=== PATIENT | female | born 1975 | race American Indian/Alaskan Native ===

== ENCOUNTER 2016-09-06 19:54 | Inpatient (IN) | payer MEDICAID ==
[2016-09-06 20:01] VITALS: BMI 24.7
--- NOTE | 2016-09-06 20:14 | ED PDOC ---
Arrival/HPI - General Time Seen by Provider: 09/06/16 19:56 Historian: Patient - History of Present Illness Narrative History of Present Illness (Text): 09/06/16 20:14 40 year old female whose past medical history includes hypertension presents to the Emergency department complaining of generalized weakness. Patient reports she was upstairs at work 15 minutes [employer] when she began experience dizziness and felt as though she was about to have a panic attack. Per patient, she went to the nurse's station and then began to lose consciousness. She states she woke up in the Emergency department and noted generalized weakness, nausea, vomiting x2 (nonbloody, nonbilious), and some chest discomfort from the vomiting. She states she no longer feels dizzy. She denies abdominal pain, headache, visual complaints, trouble speaking, or numbness. She denies any history of stroke. Patient is alert and oriented x3. She states she took her hypertension medication today right before her symptoms began. Patient reports she has experienced similar episodes in the past. PMD: Dr. Bunch Time/Duration: Prior to Arrival Symptom Onset: Gradual Symptom Course: Unchanged Activities at Onset: Rest Past Medical History - Provider Review Nursing Documentation Reviewed: Yes - Infectious Disease Hx of Infectious Diseases: None - Cardiac Hx Cardiac Disorders: Yes Hx Hypertension: Yes - Pulmonary Hx Respiratory Disorders: No - Neurological Hx Neurological Disorder: No - HEENT Hx HEENT Disorder: Yes (GLASSES) - Renal Hx Renal Disorder: No - Endocrine/Metabolic Other/Comment: enlarge thyroid. - Hematological/Oncological Hx Blood Disorders: No - Integumentary Hx Dermatological Disorder: No - Musculoskeletal/Rheumatological Hx Musculoskeletal Disorders: No - Gastrointestinal Hx Gastrointestinal Disorders: No - Genitourinary/Gynecological Hx Genitourinary Disorders: No - Psychiatric Hx Psychophysiologic Disorder: No Hx Substance Use: No - Surgical History Hx Section: Yes Hx Dilation and Curettage: Yes Other/Comment: RIGHT ARM BULLET EXTRACTION - Anesthesia Hx Anesthesia Reactions: Yes (ITCHY ? FROM WHAT) Hx Malignant Hyperthermia: No - Suicidal Assessment Feels Threatened In Home Enviroment: No Family/Social History - Physician Review Nursing Documentation Reviewed: Yes Family/Social History: Unknown Family HX Smoking Status: Never Smoked Hx Alcohol Use: No Hx Substance Use: No Allergies/Home Meds Allergies/Adverse Reactions: Allergies ibuprofen [From Advil] Allergy (Verified 11/14/15 10:35) ANAPHYLAXIS PT.TAKES GENERIC IBUPROFEN WITHOUT DIFFICULTY ALLERGIC REACTION IS TO ADVIL Home Medications: Home Meds Medication Instructions Recorded Confirmed Cyclobenzaprine [Flexeril] 1 tab PO PRN PRN 11/14/15 11/14/15 Lactulose 1 dose PO DAILY 11/14/15 11/14/15 Lisinopril 1 tab PO DAILY 11/14/15 11/14/15 Naproxen 1 tab PO DAILY PRN 11/14/15 11/14/15 Norethindrone [Patti] 1 tab PO DAILY 11/14/15 11/14/15 Sennosides [Senna Laxative] 1 tab PO BID 11/14/15 11/14/15 Review of Systems - Physician Review All systems were reviewed & negative as marked: Yes - Review of Systems Constitutional: Other (+generalized weakness) Eyes: absent: Vision Changes Cardiovascular: Other (+chest discomfort from vomiting) Gastrointestinal: Nausea, Vomiting. absent: Abdominal Pain Neurological: absent: Headache, Dizziness, Other (no difficulty speaking; no numbness) Physical Exam Vital Signs Reviewed: Yes Vital Signs Temp Pulse Resp BP Pulse Ox 09/06/16 21:35 97.8 F 75 19 100 09/06/16 20:49 97.4 F L 63 22 09/06/16 20:06 79 20 141/87 Temperature: Afebrile Blood Pressure: Normal Pulse: Regular Respiratory Rate: Normal Appearance: Positive for: Non-Toxic, Comfortable, Other (Appears weak) Pain Distress: None Mental Status: Positive for: Alert and Oriented X 3 - Systems Exam Head: Present: Atraumatic, Normocephalic Pupils: Present: PERRL Extroacular Muscles: Present: EOMI Conjunctiva: Present: Normal Mouth: Present: Moist Mucous Membranes Neck: Present: Normal Range of Motion Respiratory/Chest: Present: Clear to Auscultation, Good Air Exchange. No: Respiratory Distress, Accessory Muscle Use, Wheezes, Rales, Rhonchi Cardiovascular: Present: Regular Rate and Rhythm, Normal S1, S2. No: Murmurs, Rub, Gallop Abdomen: Present: Normal Bowel Sounds. No: Tenderness, Distention, Peritoneal Signs, Rebound, Guarding Back: Present: Normal Inspection Upper Extremity: Present: Normal Inspection, Normal ROM. No: Cyanosis, Edema Lower Extremity: Present: Normal Inspection, Normal ROM. No: Edema Neurological: Present: GCS=15, CN II-XII Intact, Speech Normal, Normal Sensory Function Skin: Present: Warm, Dry, Normal Color. No: Rashes Psychiatric: Present: Alert, Oriented x 3, Normal Insight, Normal Concentration Medical Decision Making ED Course and Treatment: 09/06/16 20:26 Impression: 40 year old female complaining of generalized weakness, nausea, and vomiting. Physical exam unremarkable. Differential Diagnosis included but are not limited to: syncope, second to cardiac vs vasovagal vs medication reaction, less likely stroke Plan: --CT Head --EKG --Chest X-ray --Urinalysis --Labs --Zofran -- Reassess and disposition Prior Visits: Notes and results from previous visits were reviewed. Progress Notes: 09/06/16 21:[address] is negative. She currently is feeling much better but is still having some dizziness and a posterior headache. She added that she has been under some stress lately and maybe that's what happened but she's not sure. Since she is still having dizziness after NS IV and Zofran, I will give her Reglan IV as an antivert. She's only allergic to ADVIL she states and not ibuprofen or aspirin. Aspirin PO was ordered for headache and for possible CVA. She will be placed on observation remote telemetry for syncope and less likely cva. 09/06/16 21:57 Case was discussed with Dr. Elder who will place on the hospitalist service in remote telemetry. Dr. Espitia is patient's PMD who admits to the hospitalist. - Lab Interpretations Lab Results: 09/06/16 20:10 09/06/16 20:10 Lab Results 09/06/16 21:06: Blood Type Pending, Antibody Screen Pending, BBK History Checked Patient has bt 09/06/16 20:20: pO2 105 H, VBG pH 7.48 H, VBG pCO2 29.0 L, VBG HCO3 21.6, VBG Total CO2 22.5, VBG O2 Sat (Calc) 99.3 H, VBG Base Excess -1.0 L, VBG Potassium 4.1, Sodium 137.0, Chloride 110.0 H, Glucose 105, Lactate 2.4 H, FiO2 21.0, Venous Blood Potassium 4.1 09/06/16 20:10: WBC 6.2, RBC 4.42, Hgb 11.9 L, Hct 35.8 L, MCV 81.0, MCH 26.9, MCHC 33.2, RDW 13.3, Plt Count 263, MPV 9.6, Gran % 50.1, Lymph % (Auto) 41.0 H , [place] % (Auto) 8.1 H, Eos % (Auto) 0.5 L, Baso % (Auto) 0.3, Gran # 3.08, Lymph # 2.5, [place] # 0.5, Eos # 0.0, Baso # 0.02, PT 10.9, INR 1.01, APTT 23.1 L , Sodium 139, Chloride 102, Potassium 3.4 L, Carbon Dioxide 24, Anion Gap 16, BUN 15, Creatinine 0.6, Est GFR ( Amer) > 60, Est GFR (Non-Af Amer) > 60 , Random Glucose 108, Calcium 10.0, Total Bilirubin 0.5, AST 26, ALT 19, Alkaline Phosphatase 62, Troponin I < 0.01, Total Protein 8.6 H, Albumin 4.6, Globulin 4.0, Albumin/Globulin Ratio 1.2, Triglycerides 51, Cholesterol 172, LDL Cholesterol Direct 101, HDL Cholesterol 52, Lipase 69, Beta HCG, Quant < 2.39 I have reviewed the lab results: Yes - RAD Interpretation Narrative RAD Interpretations (Text): 09/06/16 21:49 EXAM: CT Head Without Intravenous Contrast Dictated and Authenticated by: Asuncion Shea MD FINDINGS: Brain: No hemorrhage. No significant white matter disease. No edema. Ventricles: No hydrocephalus. Bones/joints: Skull is intact. Soft tissues: Unremarkable as visualized. Sinuses: No acute sinusitis. Mastoid air cells: No mastoid effusion. IMPRESSION: No CT evidence of acute intracranial abnormality. Thank you for allowing us to participate in the care of your patient. Dictated and Authenticated by: Asuncion Shea MD Radiology Orders: 09/06/16 20:01 CHEST PORTABLE [RAD] Stat 09/06/16 20:03 HEAD W/O CONTRAST [CT] Stat Employment Recruiter: Radiologist - EKG Interpretation EKG Interpretation (Text): 09/06/16 20:28 EKG: Ordered, reviewed, and independently interpreted the EKG. Rate : 80 BPM Rhythm : NSR Interpretation : No ST-segment elevations or depressions, no T-wave inversions, normal intervals. Interpreted by ED Physician: Yes Type: 12 lead EKG - Medication Orders Current Medication Orders: Aspirin (Aspirin) 325 mg PO STAT STA Stop: 09/06/16 21:51 Sodium Chloride (Sodium Chloride 0.9%) 1,000 mls @ 999 mls/hr IV .Q1H1M STA Stop: 09/06/16 22:43 Last Admin: 09/06/16 21:48 Dose: 999 MLS/HR eMAR Start Stop Document 09/06/16 21:48 GMI (Rec: 09/06/16 21:49 GMI [facility] [id number]) Intravenous Solution Start Date 09/06/16 Start Time 21:49 Discontinued Medications Metoclopramide HCl (Reglan) 10 mg IVP STAT STA Stop: 09/06/16 21:44 Ondansetron HCl (Zofran Inj) Confirm Administered Dose 4 mg .ROUTE .STK-MED ONE Stop: 09/06/16 20:01 Last Admin: 09/06/16 20:40 Dose: Ondansetron HCl (Zofran Inj) 4 mg IVP STAT STA Stop: 09/06/16 20:05 Last Admin: 09/06/16 20:10 Dose: 4 MG IVP Administration Document 09/06/16 20:10 GMD (Rec: 09/06/16 20:10 GMD [id number]) Charges for Administration # of IVP Administrations 1 NIHSS Scale ([place]) Time Performed: 19:56 - How Severe is the Stoke Baseline Level of Consciousness: 0=Alert LOC to Questions: 0=Both comments correct LOC to commands: 0=Obeys both correctly Best Gaze: 0=Normal Visual: 0=No visual loss Facial: 0=Normal Motor Arm - Left: 0=No drift Motor Arm - Right: 0=No drift Motor Leg - Left: 0=No drift Motor Leg - Right: 0=No drift Limb Ataxia: 0=Absent Sensory: 0=Normal Best Language: 0=No aphasia Dysarthia: 0=Normal articulation Extinction & Inattention (Neglect): 0=Normal, no object Score: 0 Risk Level: No Stroke Risk rTPA Inclusion/Exclusion - Refusal of Treatment Patient Refused Treatment: No - Inclusion Criteria for Altepase Patient is 18 years or Older: Yes The Clinical Diagnosis of Ischemic Stroke That is Causing a Potentially Disabling Neurological Deficit: No Time of Onset is Well Established to be Less Than 270 Minute Before Treatment Would Begin: Yes Risk/Benefit Discussed With Patient/Family Member Present: No - Warning to TPA With Conditions Condition: Stroke Serevity Too Mild - Scribe Statement The provider has reviewed the documentation as recorded by the Heidi Livingston Provider Scribe Attestation: All medical record entries made by the Heidi were at my direction and personally dictated by me. I have reviewed the chart and agree that the record accurately reflects my personal performance of the history, physical exam, medical decision making, and the department course for this patient. I have also personally directed, reviewed, and agree with the discharge instructions and disposition. Disposition/Present on Arrival - Present on Arrival Any Indicators Present on Arrival: No History of DVT/PE: No History of Uncontrolled Diabetes: No Urinary Catheter: No History Surgical Site Infection Following: None - Disposition Have Diagnosis and Disposition been Completed?: Yes Diagnosis: Syncope, Dizziness Disposition Time: 21:57 Patient Plan: Observation Condition: FAIR Discharge Instructions (ExitCare): Syncope (ED)
[2016-09-06 20:16] LABS: ADD MANUAL DIFF? NO
[2016-09-06 20:17] LABS: BASO # 0.02 K/mm3 (0.0-2.0); BASO % 0.3 % (0.0-3.0); EOS % 0.5 % (1.5-5.0); GRAN # 3.08 (1.4-6.5); GRAN % 50.1 % (50.0-68.0); HEMATOCRIT 35.8 % (36.0-48.0); LYMPH # 2.5 (1.2-3.4); MEAN CORPUSCULAR HEMOGLOBIN 26.9 pg (25.0-35.0); MEAN CORPUSCULAR HGB CONC 33.2 g/dl (31.0-37.0); MEAN PLATELET VOLUME 9.6 fl (7.0-11.0); MONO # 0.5 (0.1-0.6); MONO % 8.1 % (1.0-6.0); PLATELET COUNT 263 10^3/uL (120.0-450.0); RED CELL DISTRIBUTION WIDTH 13.3 % (11.5-14.5); WHITE BLOOD COUNT 6.2 10^3/ul (4.5-11.0)
[2016-09-06 20:27] LABS: ALB/GLOB RATIO 1.2 (1.1-1.8); ALKALINE PHOSPHATASE 62 U/L (38-133); ALT/SGPT 19 U/L (7-56); AST/SGOT 26 U/L (15-39); BILIRUBIN,TOTAL 0.5 mg/dL (0.2-1.3); BLOOD UREA NITROGEN 15 mg/dL (7-21); CARBON DIOXIDE 24 mmol/L (21-33); CHLORIDE 102 mmol/L (98-107); CHOLESTEROL 172 mg/dL (130-200); GFR AFRICAN-AMERICAN > 60; GLUCOSE,RANDOM 108 mg/dL (70-110); LIPASE 69 U/L (23-300); POTASSIUM 3.4 mmol/L (3.6-5.0); SODIUM 139 mmol/L (132-148); TOTAL PROTEIN 8.6 g/dL (5.8-8.3)
[2016-09-06 20:30] LABS: INR 1.01 (0.93-1.08); PARTIAL THROMBOPLASTIN TIME 23.1 Seconds (23.7-30.8)
[2016-09-06 20:31] LABS: VENOUS BLOOD PH 7.48 (7.32-7.43)
[2016-09-06 20:39] LABS: TROPONIN I < 0.01 ng/mL
--- NOTE | 2016-09-06 20:40 | CP.PCM.PCO ---
<BlessingHarmeet - Last Filed: 09/06/16 20:06> Physician Communication Note - Physician Communication Note Physician Communication Note: Please see attached section for rapid response note Summary - Summary of Event Summary of Event: Rapid Response Summary Note Harmeet Funk, PGY-1 [facility] House Physican responding: Dr. 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, caught by surrounding staff and brought down to ground to prevent fall and head trauma Physical Exam: Gen: on ground, initially non-responsive but became able to follow some commands , diaphroetic, non-verbal, ambu-bag with mask on patient to provide O2 HEENT: Initially: Eyes closed, pupils equal and round when raising eyelids, Pupils not pinpoint or dilated; Later became able to open eyes on command, track staff when commanded appropriately No teeth clenching, no sign of tongue bleeding No visible trauma Pulm: CTAB, no wheezes/rales/ronchi, not tachypnic but mildly shallow breathing Cardio: No JVD, RRR, +S1/2, -S3/4, not tachycardic or bradycardic, no murmurs/ rubs/gallops, weak but palpable radial pulses bilaterally Abd: Soft, Normal bowel sounds, no palpable masses, no organomegaly, no distention, not firm or rigid Extremities: initially held flacidly, no spontaneous movement, no gross asymmetries or edema noted; later able to attempt to move all extremities when commanded Neuro: Non-responsive initially, later had some spontaneous movement, eye opening on command, able to attempt limb movement on command, following some commands but sometimes need repeat prompting and has delay between command and attempt to follow command Psych: Non-verbal, following commands, lethargic/somnolent, occasionally requires repeat prompting Per Nursing on the scene, patient came over to the nursing station complaining of feeling lightheaded and dizzy, not feeling well, asked for one of the nurses to check her blood pressure. Patient was placed sitting in chair, but while one nurse went to get a BP cuff, patient began slouching forward in the chair and appeared to be about to fall. Other nurses on scene caught her before she could fall and lowered her to the ground, at which point she was found to be unresponsive and the rapid response was called. No head trauma. Heart monitoring at bedside revealed a rate of 70. O2 saturation on ambu-bag and later NC with 2L NC was 100%. Patient regained enough function to attempt to roll on side and cough up/retch sputum and some vomitus (non-bilious non- bloody). Head was held up and rotated to prevent aspiration of secretions. Patient continued to follow commands and appeared neurologically intact, so patient was transferred to [facility] and transported to the Emergency Department. In the ED, patient was able to speak some word, able to correctly identify herself and that she was located in the ED. Reports a history of HTN, just took her BP meds (medications unspecified) prior to the incident. She will be taken for CT of her head, and will be admitted to the Emergency Department for further workup and management. Patient seen, examined, and course of care agreed upon with attending, Dr. Elder. <Rory Elder P - Last Filed: 09/13/16 20:11> Attending/Attestation - Attestation I have personally seen and examined this patient.: Yes I have fully participated in the care of the patient.: Yes I have reviewed all pertinent clinical information: Yes
--- NOTE | 2016-09-06 21:40 | CT ---
EXAM: CT Head Without Intravenous Contrast. CLINICAL HISTORY: 40 years old, female; Signs and symptoms; Syncope and collapse TECHNIQUE: Axial computed tomography images of the head/brain without intravenous contrast. This CT exam was performed using one or more of the following dose reduction techniques: automated exposure control, adjustment of the mA and/or kV according to patient size, and/or use of iterative reconstruction technique. COMPARISON: CT - HEAD W/O CONTRAST 02/10/2016 7:54:13 PM FINDINGS: Brain: No hemorrhage. No significant white matter disease. No edema. Ventricles: No hydrocephalus. Bones/joints: Skull is intact. Soft tissues: Unremarkable as visualized. Sinuses: No acute sinusitis. Mastoid air cells: No mastoid effusion. IMPRESSION: No CT evidence of acute intracranial abnormality.
[2016-09-06] MEDS ORDERED: Sodium Chloride 0.9% 1,000 ML IV STA (21:43)
--- NOTE | 2016-09-06 23:59 | CP.PCM.HP ---
<Harmeet Funk - Last Filed: 09/07/16 00:57> History of Present Illness - History of Present Illness History of Present Illness: CC: Syncopal Episode with residual weakness/nausea/dizziness HPI: This is a 40 yo AA F employee of [employer] [place] with PMH of HTN and Panic attacks who experienced a syncopal episode while working, for which a rapid response was called (please see rapid response note for further details), and she was then brought to the ED. In the ED, patient regained full consciousness and reported persistence of weakness, nausea, and dizziness with sensation of room spinning. She experienced an episode of non-bilious non-bloody emesis in the ED. Her last memory was of sitting down in a chair prior to passing out on the wards, and other than intermittent memory of multiple faces entering and exiting her field of vision, has no memories prior to coming to in the ED. She reports that the dizziness/lightheadedness, shortness of breath, and general sensation of flushing she experienced prior to her syncopal episode was distinctly different from the episodes of lightheadedness and tachypnea she experiences with her prior panic attacks. She initially attributed these symptoms to her blood pressure, and took her Lisinopril (20mg) after experiencing them, but the symptoms persisted. She describes the symptoms as acutely worsening when moving from a sitting to standing position. Denies blurred or double vision, shortness of breath currently, chest pain, focal weakness, sensation of facial droop, pain with respiration, or tinnitus, but does admit to persisting nausea, generalized weakness, chills, diaphoresis, and sensation of room spinning. Admits to sick contact at home (child with a cold). PMH: As above, anemia with (resolved after ) PSH: x1, D&C SHx: Denies tobacco, alcohol, illicits FHx: Both parents in 40's. Mother from meningitis, Father from unknown causes. One sister with stroke (type unclear from patient's description ) PMD: Dr. Espitia Present on Admission - Present on Admission Any Indicators Present on Admission: No History of DVT/PE: No History of Uncontrolled Diabetes: No Urinary Catheter: No Review of Systems - Constitutional Constitutional: Chills, Weakness. absent: Fever Additional comments: diaphoretic, generalized weakness - EENT Eyes: absent: Blurred Vision, Change in Vision, Sees Flashes, Spots in Vision, Loss of Vision Ears: Dizziness (worse with head movement or eye movements). absent: Tinnitus Nose/Mouth/Throat: absent: Nasal Trauma, Sore Throat, Neck Pain - Cardiovascular Cardiovascular: Dyspnea (shortness of breath/rapid breathing prior to syncopal episode, resolved at time of admission exam), Lightheadedness, Syncope ( syncopal episode on wards, please see rapid response note for further details). absent: Chest Pain, Pain Radiating to Arm/Neck/Jaw, Rapid Heart Rate - Respiratory Respiratory: Cough (clear mucous), Dyspnea (shortness of breath/rapid breathing prior to syncopal episode, resolved at time of admission exam). absent: Hemoptysis, Pain on Inspiration - Gastrointestinal Gastrointestinal: Abdominal Pain (mild abdominal pain), Nausea, Vomiting (1x, non-bloody non-bilious). absent: Constipation, Diarrhea, Hematochezia, Melena - Genitourinary Genitourinary: absent: Difficulty Urinating, Dysuria, Flank Pain, Hematuria - Reproductive: Female Additional comments: normal cycle, period lasts 3 days, no heavy bleeding or passing clots, FDLMP August 25 - Musculoskeletal Musculoskeletal: Muscle Weakness (generalized weakness). absent: Deformity, Numbness, Stiffness, Tingling - Integumentary Integumentary: absent: Pruritus, Rash - Neurological Neurological: Dizziness, Headaches, Memory Loss (no memory from time of syncopal episode to fully awakening in ED other than noting multiple different faces entering and exiting her field of view during the rapid response), Syncope , Vertigo, Weakness. absent: Numbness, Focal Weakness, Loss of Vision, Other Visual Disturbances - Psychiatric Psychiatric: Anxiety - Endocrine Endocrine: Fatigue, Palpitations Past Patient History - Infectious Disease Hx of Infectious Diseases: None - Past Medical History & Family History Past Medical History?: Yes - Past Social History Smoking Status: Never Smoked - CARDIAC Hx Cardiac Disorders: Yes Hx Hypertension: Yes - PULMONARY Hx Respiratory Disorders: No - NEUROLOGICAL Hx Neurological Disorder: No - HEENT Hx HEENT Problems: Yes (GLASSES) - RENAL Hx Chronic Kidney Disease: No - ENDOCRINE/METABOLIC Other/Comment: enlarge thyroid. - HEMATOLOGICAL/ONCOLOGICAL Hx Blood Disorders: No - INTEGUMENTARY Hx Dermatological Problems: No - MUSCULOSKELETAL/RHEUMATOLOGICAL Hx Musculoskeletal Disorders: No - GASTROINTESTINAL Hx Gastrointestinal Disorders: No - GENITOURINARY/GYNECOLOGICAL Hx Genitourinary Disorders: No - PSYCHIATRIC Hx Psychophysiologic Disorder: No Hx Substance Use: No - SURGICAL HISTORY Hx Section: Yes Hx Dilation and Curettage: Yes Other/Comment: RIGHT ARM BULLET EXTRACTION - ANESTHESIA Hx Anesthesia Reactions: Yes (ITCHY ? FROM WHAT) Hx Malignant Hyperthermia: No Meds Allergies/Adverse Reactions: Allergies Allergy/AdvReac Type Severity Reaction Status Date / Time ibuprofen [From Advil] Allergy ANAPHYLAXIS Verified 11/14/15 10:35 Physical Exam - Constitutional Appears: Non-toxic, No Acute Distress Additional comments: Lethargic - Head Exam Head Exam: ATRAUMATIC, NORMAL INSPECTION - Eye Exam Eye Exam: EOMI, Normal appearance, PERRL. absent: Conjunctival injection, Scleral icterus Pupil Exam: NORMAL ACCOMODATION, PERRL. absent: Fixed, Irregular, Unequal - ENT Exam ENT Exam: Mucous Membranes Moist Additional comments: no uvular deviation, palate lifts equally/symmetrically - Neck Exam Neck exam: Positive for: Normal Inspection. Negative for: Lymphadenopathy, Thyromegaly Additional comments: no meningeal signs - Respiratory Exam Respiratory Exam: Clear to Auscultation Bilateral, NORMAL BREATHING PATTERN. absent: Accessory Muscle Use, Chest Wall Tenderness, Decreased Breath Sounds, Rales, Rhonchi, Wheezes - Cardiovascular Exam Cardiovascular Exam: REGULAR RHYTHM, RRR, +S1, +S2. absent: Bradycardia, Tachycardia, Irregular Rhythm, +S4 - GI/Abdominal Exam GI & Abdominal Exam: Normal Bowel Sounds, Soft, Tenderness (mild tenderness epigastrically). absent: Diminished Bowel Sounds, Firm, Hyperactive Bowel Sounds, Hypoactive Bowel Sounds, Mass, Organomegaly, Pulsatile Mass, Rigid - Rectal Exam Rectal Exam: Deferred - Extremities Exam Extremities exam: Positive for: full ROM, normal capillary refill, normal inspection, pedal pulses present. Negative for: calf tenderness, pedal edema, tenderness - Back Exam Back exam: absent: CVA tenderness (L), CVA tenderness (R), paraspinal tenderness , rash noted, vertebral tenderness - Neurological Exam Additional comments: Lethargic but alert, lethargy improved over level during rapid response oriented to self, location, and year heel to hawkins testing equal and appropriate bilaterally Possible mild ataxia of the left arm during [id number] testing Sensation intact and equal bilaterally for all extremities and face Muscle strength testing +5/5 for upper and lower extremities bilaterally Please see attached section for NIHSS score - Psychiatric Exam Psychiatric exam: Normal Affect, Normal Mood - Skin Skin Exam: Dry, Intact, Normal Color, Warm Results - Vital Signs Recent Vital Signs: Last Vital Signs Temp 98 F 09/06/16 22:00 Pulse 76 09/06/16 22:00 Resp 20 09/06/16 22:00 BP 130/56 L 09/06/16 22:00 Pulse Ox 100 09/06/16 22:00 - Labs Result Diagrams: 09/06/16 20:10 09/06/16 20:10 Assessment & Plan - Assessment and Plan (Free Text) Assessment: This is a 40 yo AA F employee of [employer] with PMH of HTN and Panic attacks who experienced a syncopal episode while working for which a rapid response was called (please see rapid response note for further details). She is being admitted for syncopal episode with residual vertiginous symptoms and weakness/ lightheadedness. Plan: 1) Syncopal episode -Vasovagal vs orthostatic hypotension vs stroke vs arrhythmia vs seizure vs intracranial bleed vs 2/2 vertigo/labyrinthitis + hyperventilation vs hypertensive crisis -No tongue bitting, bladder/bowel incontinence, generalized tremors/shaking witnessed during Rapid response; less likely seizure -normal EKG and normal rhythm on heart monitor during rapid response, arrhythmia less likely -Reported flushing, lightheadedness/dizziness, worse with position change from sitting to standing -Patient took her antihypertensive (Lisinopril) during initiation of symptoms, may have been exacerbated hypotension 2/2 poor PO intake -CT head obtained, negative for acute findings, but given possible LUE ataxia on exam, will order MRI in AM -ASA 325mg given in the ED -BP during rapid response 150's SBP, now 130's-140's -Meclizine x1 25mg PO given in ED, 25mg q8 PRN ordered for vertiginous symptoms -High fall risk protocol in place -EKG NSR at 80, repeat EKG in AM -Continue home Lisinopril with hold parameters for SBP < 120 -NS 100cc/hr -Zofran 4mg IV PRN for nausea 2) Vertiginous sx -labyrinthitis vs central lesion -CT head negative for acute process -Positive Kayla halpike testing -Meclizine for vertigo, Zofran for N/V -IV hydration given N/V, possible dehydration Dispo: Remote telemetry obs for syncopal episode vs stroke, pending f/u MRI FEN: NS 100cc/hr, NPO except meds Access: Peripheral IV Consults: Ppx: Protonix for GI, SCDs for DVT Patient seen, examined, and discussed with attending, Dr. Elder. - Date & Time Date: 09/07/16 Time: 01:24 Decision To Admit - Pt Status Changed To: Hospital Disposition Of: Observation - . Bed Request Type: Remote Telemetry NIHSS Scale (Alder) Time Performed: 23:30 - How Severe is the Stoke Baseline Level of Consciousness: 1=Drowsy LOC to Questions: 0=Both comments correct LOC to commands: 0=Obeys both correctly Best Gaze: 0=Normal Visual: 0=No visual loss Facial: 0=Normal Motor Arm - Left: 0=No drift Motor Arm - Right: 0=No drift Motor Leg - Left: 0=No drift Motor Leg - Right: 0=No drift Limb Ataxia: 1=Present Upper or Lower (possible mild ataxia of left upper extremity) Sensory: 0=Normal Best Language: 0=No aphasia Dysarthia: 0=Normal articulation Extinction & Inattention (Neglect): 0=Normal, no object Score: 2 Risk Level: Minor Stroke Risk <Rory Elder P - Last Filed: 09/13/16 20:11> Results - Vital Signs Recent Vital Signs: Last Vital Signs Temp 98.5 F 09/12/16 09:03 Pulse 52 L 09/12/16 09:03 Resp 20 09/12/16 09:03 BP 137/81 09/12/16 09:03 Pulse Ox 100 09/12/16 09:03 - Labs Result Diagrams: 09/11/16 07:15 09/11/16 07:15 Attending/Attestation - Attestation I have personally seen and examined this patient.: Yes I have fully participated in the care of the patient.: Yes I have reviewed all pertinent clinical information: Yes
[2016-09-07] MEDS: Sodium Chloride 0.9% 1,000 ML IV SCH ×2 (00:18→20:34)
[2016-09-07 00:46] LABS: VENOUS BLOOD GAS BASE EXCESS -0.6 mmol/L (0.0-2.0); VENOUS BLOOD PH 7.35 (7.32-7.43)
[2016-09-07] MEDS ORDERED: Apap-Butalbital-Caffeine 325-50-40mg Tab PO STA (05:42)
[2016-09-07 06:36] LABS: ADD MANUAL DIFF? NO
[2016-09-07 06:40] LABS: BASO # 0.02 K/mm3 (0.0-2.0); BASO % 0.3 % (0.0-3.0); EOS % 0.4 % (1.5-5.0); GRAN # 4.85 (1.4-6.5); GRAN % 67.3 % (50.0-68.0); HEMATOCRIT 31.7 % (36.0-48.0); LYMPH # 1.8 (1.2-3.4); LYMPH % 25.6 % (22.0-35.0); MEAN CELL VOLUME 80.7 fL (80.0-105.0); MEAN CORPUSCULAR HEMOGLOBIN 26.5 pg (25.0-35.0); MEAN CORPUSCULAR HGB CONC 32.8 g/dl (31.0-37.0); MEAN PLATELET VOLUME 9.6 fl (7.0-11.0); MONO # 0.5 (0.1-0.6); MONO % 6.4 % (1.0-6.0); PLATELET COUNT 237 10^3/uL (120.0-450.0); RED CELL DISTRIBUTION WIDTH 13.2 % (11.5-14.5); WHITE BLOOD COUNT 7.2 10^3/ul (4.5-11.0)
[2016-09-07 06:50] LABS: ALB/GLOB RATIO 1.2 (1.1-1.8); ALKALINE PHOSPHATASE 51 U/L (38-133); ALT/SGPT 18 U/L (7-56); AST/SGOT 24 U/L (15-39); BILIRUBIN,TOTAL 0.8 mg/dL (0.2-1.3); BLOOD UREA NITROGEN 10 mg/dL (7-21); CALCIUM 8.6 mg/dL (8.4-10.5); CARBON DIOXIDE 25 mmol/L (21-33); CHLORIDE 106 mmol/L (98-107); GFR AFRICAN-AMERICAN > 60; GLUCOSE,RANDOM 84 mg/dL (70-110); MAGNESIUM 1.7 mg/dL (1.7-2.2); PHOSPHOROUS 3.8 mg/dL (2.5-4.5); POTASSIUM 3.8 mmol/L (3.6-5.0); SODIUM 138 mmol/L (132-148); TOTAL PROTEIN 6.9 g/dL (5.8-8.3)
--- NOTE | 2016-09-07 08:21 | RAD ---
HISTORY: dizzy COMPARISON: None available. TECHNIQUE: Chest, one view. FINDINGS: LUNGS: No focal consolidation. Please note that chest x-ray has limited sensitivity for the detection of pulmonary masses. PLEURA: No significant pleural effusion identified. No definite pneumothorax . CARDIOVASCULAR: The cardiomediastinal silhouette appears within normal limits of size. OSSEOUS STRUCTURES: No acute osseous abnormality identified. VISUALIZED UPPER ABDOMEN: Unremarkable. OTHER FINDINGS: None. IMPRESSION: No focal consolidation, significant pleural effusion, or definite pneumothorax identified.
[2016-09-07 09:48] LABS: URINE BILIRUBIN NEGATIVE (NEGATIVE); URINE BLOOD LARGE (NEGATIVE); URINE GLUCOSE (UA) NEGATIVE (NEGATIVE); URINE KETONE >=80 mg/dL (NEGATIVE); URINE LEUKOCYTE ESTERASE SMALL Leu/uL (NEGATIVE); URINE PROTEIN NEGATIVE mg/dL (<30 mg/dL)
[2016-09-07 10:00] LABS: URINE COLOR YELLOW (YELLOW)
[2016-09-07 10:01] LABS: URINE APPEARANCE CLEAR (CLEAR)
[2016-09-07 10:04] LABS: URINE BACTERIA RARE (NEG)
--- NOTE | 2016-09-07 10:07 | CARD ---
APPROVED REPORT EKG Measurement Heart [id number] <Conclusion> Sinus rhythm LVH by voltage
--- NOTE | 2016-09-07 10:23 | CARD ---
APPROVED REPORT EKG Measurement Heart [id number] <Conclusion> Normal sinus rhythm Moderate voltage criteria for LVH, may be normal variant LAD
--- NOTE | 2016-09-07 21:52 | CON ---
DATE: 09/07/2016 REASON FOR CONSULTATION: Episode of passing out, and dizziness. HISTORY OF PRESENTING ILLNESS: The patient is a 40-year-old female who was in the usual state of [facility] until yesterday. While she was a work she felt hot in her body, and then she went to the locker room where she felt dizzy. She got out and then she was told to sit down, and then after that she pa ssed out. She woke up in the Emergency Room. She is still experiencing dizziness. Dizziness is laxmi cribed as a spinning sensation. It is associated with nausea and vomiting. She feels weak all over. She has been getting meclizine, however, it is not really helping her symptoms. She denies any los s of vision. Denies any focal weakness in the arms or legs. REVIEW OF SYSTEMS: Denies any headache. Positive for dizziness. Denies any chest pain, shortness o f breath, abdominal pain, constipation, diarrhea, dysuria, cough, or sputum production. PAST MEDICAL HISTORY: Includes hypertension, panic attacks, anemia. MEDICATIONS: Include meclizine 25 mg every 8 hours, Zofran. ALLERGIES: IBUPROFEN. SOCIAL HISTORY: Denies smoking, use of alcohol, or illicit drugs. FAMILY HISTORY: Mother from meningitis. Father from unknown cause. GENERAL PHYSICAL EXAMINATION: The patient is a middle-aged female lying on the bed in no acute distress. Her blood pressure is 130/81, heart rate is 71 per minute, breathing at the rate of 16 per minute, te mperature is 98.6 degrees Fahrenheit. HENT EXAMINATION: Head is normocephalic, atraumatic. NECK: Supple. There are no carotid bruits. LUNGS: Clear. CARDIOVASCULAR SYSTEM EXAMINATION: S1, S2 audible. No murmurs. ABDOMEN: Soft, nontender, bowel sounds are present. NEUROLOGY EXAMINATION: MENTAL STATUS: The patient is awake, alert, oriented to time, place, person. Speech is fluent. Nam ing and repetition normal. Memory and cognition are intact. CRANIAL NERVE EXAMINATION: Pupils are 4 mm, bilaterally reactive to light, visual cooper are full. Extraocular movements are intact. There is no facial asymmetry. Palate is upgoing bilaterally and t ongue is midline. MOTOR EXAMINATION: Tone is normal power and power is 5/5 bilaterally in all extremities. Reflexes + 2 and symmetrical. Plantars downgoing bilaterally. CEREBELLAR EXAMINATION: [id number] shows no dysmetria. Labs reviewed shows WBC of 7.2, hemoglobin of 10.4, hematocrit of 31.7, and platelets of 237. Sodium is 138, potassium 3.8, chloride 106, carbon dioxide content of 25, BUN of 11, creatinine of 0.6, and glucose of 84. She had a CT scan of the head done which shows no acute intracranial pathology. IMPRESSION: 1. Status post syncope, rule out cardiac arrhythmias versus seizure. 2. Dizziness, likely labyrinthine dysfunction. RECOMMENDATIONS: 1. The patient to have MRI of the brain without contrast. 2. The patient to have an electroencephalogram. 3. The patient is taking meclizine, however, it is not helping her symptoms. Will start her on loraze gabriel 1 mg twice a day to see if that helps her dizziness better. The patient to stop taking meclizine . 4. The patient to be continued on Zofran. 5. The patient to have cardiac monitoring to rule out any cardiac arrhythmias. 6. Please continue other treatment. Thank you for the opportunity to participate in the care of this patient. Sotero Barfield MD cc: [id number] TT: 09/07/2016 21:51:53 Confirmation # [id number] Dictation # [id number]
[2016-09-08] MEDS: Sodium Chloride 0.9% 1,000 ML IV SCH (06:43)
[2016-09-08 06:51] LABS: BLOOD UREA NITROGEN 6 mg/dL (7-21); CALCIUM 7.8 mg/dL (8.4-10.5); CARBON DIOXIDE 22 mmol/L (21-33); CHLORIDE 108 mmol/L (98-107); GFR AFRICAN-AMERICAN > 60; GLUCOSE,RANDOM 77 mg/dL (70-110); MAGNESIUM 1.6 mg/dL (1.7-2.2); PHOSPHOROUS 3.2 mg/dL (2.5-4.5); POTASSIUM 3.3 mmol/L (3.6-5.0); SODIUM 137 mmol/L (132-148)
[2016-09-08 06:56] LABS: IRON 73 ug/dL (45-180)
[2016-09-08 07:22] LABS: HEMATOCRIT 29.2 % (36.0-48.0); MEAN CELL VOLUME 81.6 fL (80.0-105.0); MEAN CORPUSCULAR HEMOGLOBIN 26.5 pg (25.0-35.0); MEAN CORPUSCULAR HGB CONC 32.5 g/dl (31.0-37.0); MEAN PLATELET VOLUME 9.6 fl (7.0-11.0); RED CELL DISTRIBUTION WIDTH 13.2 % (11.5-14.5); WHITE BLOOD COUNT 4.8 10^3/ul (4.5-11.0)
[2016-09-08] MEDS ORDERED: Potassium Chloride 20 mEq ER Tab PO ONE (07:31)
[2016-09-08] MEDS: Magnesium Oxide 400 mg Tab UD PO SCH ×2 (09:01→18:03)
[2016-09-08] MEDS: Apap-Butalbital-Caffeine 325-50-40mg Tab PO PRN ×3 (10:52→22:44)
[2016-09-08] MEDS: cefTRIAXone 1 gm 100 ML IVPB SCH (11:11)
--- NOTE | 2016-09-08 11:25 | MRI ---
PROCEDURE: MRI BRAIN WITHOUT CONTRAST HISTORY: syncopal episode, possible left UE ataxia COMPARISON: CT scan head 09/06/2016 TECHNIQUE: Multiplanar, multisequence MR images of the brain were obtained without intravenous contrast enhancement. FINDINGS: HEMORRHAGE: None DWI: No evidence of an acute or early subacute infarction. BRAIN PARENCHYMA: No mass effect or edema. There is a focus of signal abnormality in the posterior left parietal periventricular white matter on axial image 16 series 5. There may be a few very tiny subtle other areas seen in the frontal white matter on the left. Findings are nonspecific. These are probably related to minor microvascular small-vessel changes. Other etiologies including demyelinating disease, Lyme disease, or vasculitis could have a similar appearance. No cortical effacement is identified. VENTRICLES: Unremarkable. No hydrocephalus. CRANIUM: No abnormal marrow signal in the skull. ORBITS: Grossly unremarkable. PARANASAL SINUSES/MASTOIDS: Clear VASCULAR SYSTEM: Skull base flow voids intact. OTHER FINDINGS: None. IMPRESSION: No evidence of recent infarct. No mass lesion seen. A few very tiny nonspecific foci of signal in the left white matter tracts probably representing minor microvascular small-vessel change. Differential is given above. Clinical follow-up suggested. This agrees with preliminary report.
--- NOTE | 2016-09-08 19:51 | CP.PCM.PN ---
<Romeo Porter - Last Filed: 09/08/16 19:48> Subjective - Date & Time of Evaluation Date of Evaluation: 09/08/16 Time of Evaluation: 09:31 - Subjective Subjective: Pt seen and examined. Pt complains of headache, nausea, and vomiting. Pt denies fever, chills, chest pain, shortness of breath. Objective - Vital Signs/Intake and Output Vital Signs (last 24 hours): Temp Pulse Resp BP Pulse Ox 100 F H 65 19 150/87 100 09/08/16 17:04 09/08/16 16:58 09/08/16 16:58 09/08/16 16:58 09/08/16 16:58 - Medications Medications: Current Medications Acetaminophen (Tylenol 325mg Tab) 650 mg PO Q6H PRN PRN Reason: Fever >100.4 or headache Last Admin: 09/08/16 17:04 Dose: 650 mg Acetaminophen/Butalbital/Caffeine (Fioricet) 1 tab PO Q4H PRN PRN Reason: Migraine headache Last Admin: 09/08/16 15:40 Dose: 1 tab Ferrous Sulfate (Feosol) 324 mg PO TID INNA Last Admin: 09/08/16 17:03 Dose: 324 mg Sodium Chloride (Sodium Chloride 0.9%) 1,000 mls @ 100 mls/hr IV .Q10H INNA Last Admin: 09/08/16 06:43 Dose: 100 mls/hr Ceftriaxone Sodium (Rocephin 1 Gram Ivpb) 100 mls @ 100 mls/hr IVPB DAILY INNA PRN Reason: Protocol Last Admin: 09/08/16 11:11 Dose: 100 mls/hr Lorazepam (Ativan) 1 mg PO BID PRN; Protocol PRN Reason: Dizziness Last Admin: 09/08/16 09:01 Dose: 1 mg Magnesium Oxide (Mag-Ox) 400 mg PO BID INNA Stop: 09/08/16 23:59 Last Admin: 09/08/16 18:03 Dose: 400 mg Meclizine HCl (Antivert) 25 mg PO Q8H PRN PRN Reason: Dizziness Last Admin: 09/08/16 10:52 Dose: 25 mg Ondansetron HCl (Zofran Inj) 4 mg IVP Q6H PRN PRN Reason: Nausea/Vomiting Last Admin: 09/08/16 14:04 Dose: 4 mg - Labs Labs: 09/08/16 06:20 09/08/16 06:20 PT 10.9 Seconds (9.9-11.8) 09/06/16 20:10 INR 1.01 (0.93-1.08) 09/06/16 20:10 APTT 23.1 Seconds (23.7-30.8) L 09/06/16 20:10 - Constitutional Appears: No Acute Distress - Head Exam Head Exam: ATRAUMATIC, NORMOCEPHALIC - Eye Exam Eye Exam: EOMI, PERRL - ENT Exam ENT Exam: Mucous Membranes Moist. absent: Mucous Membranes Dry - Respiratory Exam Respiratory Exam: Clear to Ausculation Bilateral. absent: Rales, Rhonchi, Wheezes - Cardiovascular Exam Cardiovascular Exam: +S1, +S2. absent: Gallop, Rubs - GI/Abdominal Exam GI & Abdominal Exam: Soft. absent: Distended, Guarding, Tenderness - Extremities Exam Extremities Exam: absent: Pedal Edema - Neurological Exam Neurological Exam: Alert, Awake, Oriented x3 - Psychiatric Exam Psychiatric exam: Normal Affect, Normal Mood - Skin Skin Exam: Normal Color, Warm Assessment and Plan - Assessment and Plan (Free Text) Assessment: Near Syncope: Head CT - no evidence of acute intracranial abnormality Brain MRI - a nonspecific signal of foci in left white matter tract; probably representing microvascular change (please see full report) EKG - criteria for LVH (please see full report) Anemia: H/H: 9.5/29.2 Feosol 324 mg po tid Vertigo: Head CT - no evidence of acute intracranial abnormality Neuro consult, Dr. Krystal Barfield, help appreciated. Ativan 1 mg po bid Fever: Tmax 100.4 Urine cultures/Blood cultures pending CXR - negative (please see full report) Rocephin 1 gm IV qd Tylenol prn for fever > 100.4 Headache: Fioricet 1 tab po q4h prn Prophylactic Measures: DVT: SCDs, heparin 5000 units sc q12h GI: Protonix 40 mg po qd Zofran prn for nausea NS 100 cc/hr <Belén Barfield - Last Filed: 09/09/16 15:57> Objective - Vital Signs/Intake and Output Vital Signs (last 24 hours): Temp Pulse Resp BP Pulse Ox 98.6 F 50 L 18 136/68 99 09/09/16 08:33 09/09/16 10:00 09/09/16 08:33 09/09/16 08:33 09/09/16 08:33 Intake and Output: 09/09/16 09/09/16 06:59 18:59 Intake Total 2590 2650 Output Total 400 Balance 2190 2650 - Medications Medications: Current Medications Acetaminophen (Tylenol 325mg Tab) 650 mg PO Q6H PRN PRN Reason: Fever >100.4 or headache Last Admin: 09/08/16 17:04 Dose: 650 mg Acetaminophen/Butalbital/Caffeine (Fioricet) 1 tab PO Q4H PRN PRN Reason: Migraine headache Last Admin: 09/09/16 11:15 Dose: 1 tab Docusate Sodium (Colace) 100 mg PO TID INNA Ferrous Sulfate (Feosol) 324 mg PO TID INNA Last Admin: 09/09/16 13:34 Dose: 324 mg Heparin Sodium (Porcine) (Heparin) 5,000 units SC Q12 INNA PRN Reason: Protocol Last Admin: 09/09/16 11:15 Dose: 5,000 units Sodium Chloride (Sodium Chloride 0.9%) 1,000 mls @ 100 mls/hr IV .Q10H INNA Last Admin: 09/09/16 03:36 Dose: 100 mls/hr Ceftriaxone Sodium (Rocephin 1 Gram Ivpb) 100 mls @ 100 mls/hr IVPB DAILY INNA PRN Reason: Protocol Last Admin: 09/09/16 11:15 Dose: 100 mls/hr Lorazepam (Ativan) 1 mg PO BID PRN; Protocol PRN Reason: Dizziness Last Admin: 09/09/16 03:42 Dose: 1 mg Meclizine HCl (Antivert) 25 mg PO Q8H PRN PRN Reason: Dizziness Last Admin: 09/09/16 13:34 Dose: 25 mg Ondansetron HCl (Zofran Inj) 4 mg IVP Q6H PRN PRN Reason: Nausea/Vomiting Last Admin: 09/09/16 11:16 Dose: 4 mg Pantoprazole Sodium (Protonix Ec Tab) 40 mg PO 0630 INNA Last Admin: 09/09/16 05:40 Dose: 40 mg Polyethylene Glycol (Miralax) 17 gm PO BID PRN PRN Reason: Constipation Promethazine HCl (Phenergan Tab) 25 mg PO Q6 PRN PRN Reason: nausea and vomiting - Labs Labs: 09/09/16 06:20 09/09/16 06:20 PT 10.9 Seconds (9.9-11.8) 09/06/16 20:10 INR 1.01 (0.93-1.08) 09/06/16 20:10 APTT 23.1 Seconds (23.7-30.8) L 09/06/16 20:10 Attending/Attestation - Attestation I have personally seen and examined this patient.: Yes I have fully participated in the care of the patient.: Yes I have reviewed all pertinent clinical information, including history, physical exam and plan: Yes Notes (Text): 40 year old female with history of HTN, panic attacks, uterine fibroids who got admitted for evaluation of near syncope. Head CT, Brain MRI did nt show any acute findings. EEG pending. No arrythmia noted on EKG or tele strips. Echo pending. Complained of difficullty passing urine and found to have UTI. Urine culture pending. Currently on rocephin. She also has anemia secondary to iron deficiency. Started on feosol. She continues to have nausea and dizziness. Meclizine helped her a little but ativan is not helping at all as per patient. Will discuss with neurologist. Restarted meclizine. Encouraged her to do PT. Dr Belén Barfield
[2016-09-09] MEDS: Sodium Chloride 0.9% 1,000 ML IV SCH ×3 (03:36→21:22)
[2016-09-09] MEDS: Apap-Butalbital-Caffeine 325-50-40mg Tab PO PRN ×4 (03:47→21:22)
[2016-09-09] MEDS: Pantoprazole 40 mg EC Tab PO SCH (05:40)
[2016-09-09 06:42] LABS: HEMATOCRIT 28.8 % (36.0-48.0); MEAN CELL VOLUME 81.1 fL (80.0-105.0); MEAN CORPUSCULAR HEMOGLOBIN 26.8 pg (25.0-35.0); MEAN PLATELET VOLUME 9.6 fl (7.0-11.0); WHITE BLOOD COUNT 4.4 10^3/ul (4.5-11.0)
[2016-09-09 06:53] LABS: BLOOD UREA NITROGEN 3 mg/dL (7-21); CALCIUM 8.1 mg/dL (8.4-10.5); CARBON DIOXIDE 24 mmol/L (21-33); CHLORIDE 107 mmol/L (95-110); GFR AFRICAN-AMERICAN > 60; GLUCOSE,RANDOM 77 mg/dL (70-110); MAGNESIUM 1.7 mg/dL (1.7-2.2); PHOSPHOROUS 3.3 mg/dL (2.5-4.5); POTASSIUM 3.7 mmol/L (3.6-5.0); SODIUM 139 mmol/L (132-148)
--- NOTE | 2016-09-09 10:06 | CP.PCM.PN ---
Subjective - Date & Time of Evaluation Date of Evaluation: 09/09/16 Time of Evaluation: 08:40 - Subjective Subjective: 40 yo AA F employee of [employer] [place] with PMH of HTN and Panic attacks who experienced a syncopal episode while working. Today, she complains of hot/cold intolerance, headache, nausea, dizziness, weakness and midline pelvic pain. She is unable to get out of bed and walk around without help. She denies chest pain, shortness of breath. Objective - Vital Signs/Intake and Output Vital Signs (last 24 hours): Temp Pulse Resp BP Pulse Ox 98.6 F 67 18 136/68 99 09/09/16 08:33 09/09/16 08:33 09/09/16 08:33 09/09/16 08:33 09/09/16 08:33 Intake and Output: 09/09/16 09/09/16 06:59 18:59 Intake Total 2590 Output Total 400 Balance 2190 - Medications Medications: Current Medications Acetaminophen (Tylenol 325mg Tab) 650 mg PO Q6H PRN PRN Reason: Fever >100.4 or headache Last Admin: 09/08/16 17:04 Dose: 650 mg Acetaminophen/Butalbital/Caffeine (Fioricet) 1 tab PO Q4H PRN PRN Reason: Migraine headache Last Admin: 09/09/16 03:47 Dose: 1 tab Ferrous Sulfate (Feosol) 324 mg PO TID [facility] Last Admin: 09/08/16 17:03 Dose: 324 mg Heparin Sodium (Porcine) (Heparin) 5,000 units SC Q12 [facility] PRN Reason: Protocol Last Admin: 09/08/16 21:45 Dose: 5,000 units Sodium Chloride (Sodium Chloride 0.9%) 1,000 mls @ 100 mls/hr IV .Q10H [facility] Last Admin: 09/09/16 03:36 Dose: 100 mls/hr Ceftriaxone Sodium (Rocephin 1 Gram Ivpb) 100 mls @ 100 mls/hr IVPB DAILY [facility] PRN Reason: Protocol Last Admin: 09/08/16 11:11 Dose: 100 mls/hr Lorazepam (Ativan) 1 mg PO BID PRN; Protocol PRN Reason: Dizziness Last Admin: 09/09/16 03:42 Dose: 1 mg Meclizine HCl (Antivert) 25 mg PO Q8H PRN PRN Reason: Dizziness Last Admin: 09/09/16 05:40 Dose: 25 mg Ondansetron HCl (Zofran Inj) 4 mg IVP Q6H PRN PRN Reason: Nausea/Vomiting Last Admin: 09/08/16 20:25 Dose: 4 mg Pantoprazole Sodium (Protonix Ec Tab) 40 mg PO 0630 [facility] Last Admin: 09/09/16 05:40 Dose: 40 mg - Labs Labs: 09/09/16 06:20 09/09/16 06:20 PT 10.9 Seconds (9.9-11.8) 09/06/16 20:10 INR 1.01 (0.93-1.08) 09/06/16 20:10 APTT 23.1 Seconds (23.7-30.8) L 09/06/16 20:10 - Constitutional Appears: Non-toxic, No Acute Distress - Head Exam Head Exam: ATRAUMATIC, NORMOCEPHALIC - Eye Exam Eye Exam: EOMI - ENT Exam ENT Exam: Mucous Membranes Moist - Respiratory Exam Respiratory Exam: Clear to Ausculation Bilateral, NORMAL BREATHING PATTERN - Cardiovascular Exam Cardiovascular Exam: REGULAR RHYTHM, RRR, +S1, +S2. absent: JVD - GI/Abdominal Exam GI & Abdominal Exam: Soft, Tenderness, Normal Bowel Sounds - Neurological Exam Neurological Exam: Alert, Awake, Oriented x3 - Psychiatric Exam Psychiatric exam: Normal Affect, Normal Mood - Skin Skin Exam: Dry, Intact, Normal Color, Warm Assessment and Plan - Assessment and Plan (Free Text) Plan: Near Syncope: Head CT - no evidence of acute intracranial abnormality Brain MRI - No evidence of recent infarct. No mass lesion seen. - A few very tiny nonspecific signal of foci in left white matter tract; probably representing minor microvascular changes (please see full report) EKG - voltage criteria for LVH ECHO -LV is normal size, normal LV wall thickness, LV EF is in normal range -grade one abnormal relaxation pattern -mild TR, mild pulm htn EEG -Normal EEG, no epileptiform activity seen in the EEG recording Neuro Consult - Dr. Sotero Barfield - cardiac vs seizure - dizziness, likely labyrinthine dysfunction - stop Meclizine, start lorazepam - continue Zofran - r/o arrhythmia Anemia: H/H: 9.5/29.2 Feosol 324 mg po tid Iron, TIBC, % Sat, Ferritin all WNL Hypothyroid: TSH WNL Vertigo: Head CT - no evidence of acute intracranial abnormality Neuro consult, Dr. Krystal Barfield, help appreciated. Ativan 1 mg po bid Fever: Tmax 100.4 Urine cultures Gram + cocci -on Ceftriaxone Blood cultures [id number] CXR - negative (please see full report) Rocephin 1 gm IV qd Tylenol prn for fever > 100.4 Headache: Fioricet 1 tab po q4h prn Prophylactic Measures: DVT: SCDs, heparin 5000 units sc q12h GI: Protonix 40 mg po qd Zofran/Phenergan prn for nausea NS 100 cc/hr Constipation -Miralax/Colace
--- NOTE | 2016-09-09 11:06 | EEG ---
DATE: 09/09/2016 INTRODUCTION: This is a digitally recorded EEG monitoring using standard EEG montages. BACKGROUND RHYTHM: The EEG shows a background activity of 9-10 Hz alpha activity in parietooccipital region. The EEG activity is bilaterally symmetrical and synchronous. There is attenuation of the b ackground activity on eye opening. No sleep recording was noted. ABNORMAL POTENTIALS: No spikes, sharp waves or focal slowing was seen. PHOTIC STIMULATION AND HYPERVENTILATION: Photic stimulation did not reveal any abnormality. Hyperve ntilation was not performed. IMPRESSION: Normal electroencephalogram. No epileptiform activity seen in this electroencephalogram recording. Sotero Barfield MD cc: [id number] TT: 09/09/2016 11:06:21 Confirmation # [id number] Dictation # [id number]
[2016-09-09] MEDS: cefTRIAXone 1 gm 100 ML IVPB SCH (11:15)
--- NOTE | 2016-09-09 12:48 | CARD ---
APPROVED REPORT EXAM: Two-dimensional and M-mode echocardiogram with Doppler and color Doppler. INDICATION LV Function:SystolicDiastolic 2D DIMENSIONS Left Atrium (2D)3.1 (1.6-4.0cm)IVSd1.0 (0.7-1.1cm) LVDd4.3 (3.9-5.9cm)PWd1.0 (0.7-1.1cm) LVDs2.6 (2.5-4.0cm)FS (%) 39.4 % LVEF (%)70.4 (>50%) M-Mode DIMENSIONS Aortic Root2.30 (2.2-3.7cm)Aortic Cusp Exc.1.50 (1.5-2.0cm) Aortic Valve AoV Peak Gfopilpv882.0cm/Karlene Peak GR.11mmHg Mitral Valve MV E Kxfysmni433.0cm/sMV A Ddjdfjvy14.8cm/sE/A ratio1.5 TDI E/Lateral E'0.0E/Medial E'0.0 Tricuspid Valve TR Peak Rtyyeldi076is/sRAP [id number] Peak Gr.25mmHg [id number] LEFT VENTRICLE The left ventricle is normal size. There is normal left ventricular wall thickness. The left ventricular function is normal. The left ventricular ejection fraction is within the normal range. There is normal LV segmental wall motion. Transmitral Doppler flow pattern is Grade I-abnormal relaxation pattern. RIGHT VENTRICLE The right ventricle is normal size. There is normal right ventricular wall thickness. The right ventricular systolic function is normal. ATRIA The left atrium size is normal. The right atrium size is normal. AORTIC VALVE The aortic valve is normal in structure. No aortic regurgitation is present. There is no aortic valvular stenosis. MITRAL VALVE The mitral valve is normal in structure. There is no mitral valve regurgitation noted. TRICUSPID VALVE There is mild tricuspid regurgitation. There is mild pulmonary hypertension. GREAT VESSELS The aortic root is normal in size. The IVC is normal in size and collapses >50% with inspiration. PERICARDIAL EFFUSION There is no pericardial effusion. <Conclusion> The left ventricle is normal size. There is normal left ventricular wall thickness. The left ventricular function is normal. The left ventricular ejection fraction is within the normal range. There is normal LV segmental wall motion. Transmitral Doppler flow pattern is Grade I-abnormal relaxation pattern. There is mild tricuspid regurgitation. There is mild pulmonary hypertension.
--- NOTE | 2016-09-09 13:01 | CARD ---
APPROVED REPORT EKG Measurement Heart [id number] <Conclusion> Sinus bradycardia with sinus arrhythmia Otherwise normal ECG
[2016-09-09] MEDS ORDERED: POLYETHYLENE GLYCOL 3350 17 GM/Dose PACKET PO PRN (14:23)
[2016-09-10] MEDS: Pantoprazole 40 mg EC Tab PO SCH (06:24)
[2016-09-10 07:27] LABS: ADD MANUAL DIFF? NO
[2016-09-10 07:34] LABS: BASO # 0.02 K/mm3 (0.0-2.0); BASO % 0.5 % (0.0-3.0); EOS # 0.1 (0.0-0.7); EOS % 2.7 % (1.5-5.0); GRAN # 1.46 (1.4-6.5); GRAN % 39.8 % (50.0-68.0); HEMATOCRIT 28.7 % (36.0-48.0); LYMPH # 1.8 (1.2-3.4); LYMPH % 49.6 % (22.0-35.0); MEAN CELL VOLUME 80.4 fL (80.0-105.0); MEAN CORPUSCULAR HEMOGLOBIN 26.6 pg (25.0-35.0); MEAN CORPUSCULAR HGB CONC 33.1 g/dl (31.0-37.0); MEAN PLATELET VOLUME 9.5 fl (7.0-11.0); MONO # 0.3 (0.1-0.6); MONO % 7.4 % (1.0-6.0); PLATELET COUNT 184 10^3/uL (120.0-450.0); WHITE BLOOD COUNT 3.7 10^3/ul (4.5-11.0)
[2016-09-10 08:40] LABS: ALB/GLOB RATIO 1.1 (1.1-1.8); ALKALINE PHOSPHATASE 37 U/L (38-133); ALT/SGPT 41 U/L (7-56); AST/SGOT 35 U/L (15-39); BILIRUBIN,TOTAL 0.4 mg/dL (0.2-1.3); BLOOD UREA NITROGEN 4 mg/dL (7-21); CARBON DIOXIDE 24 mmol/L (21-33); CHLORIDE 108 mmol/L (98-107); GFR AFRICAN-AMERICAN > 60; GLUCOSE,RANDOM 68 mg/dL (70-110); POTASSIUM 3.5 mmol/L (3.6-5.0); SODIUM 139 mmol/L (132-148); TOTAL PROTEIN 5.8 g/dL (5.8-8.3)
[2016-09-10] MEDS: cefTRIAXone 1 gm 100 ML IVPB SCH (09:25)
[2016-09-10] MEDS: Apap-Butalbital-Caffeine 325-50-40mg Tab PO PRN ×4 (09:25→22:28)
[2016-09-10] MEDS: Sodium Chloride 0.9% 1,000 ML IV SCH (09:26)
[2016-09-10] MEDS ORDERED: Potassium Chloride 20 mEq ER Tab PO STA (11:26)
[2016-09-10] MEDS ORDERED: Barium Sulfate Susp 2.1% w/v, 2.0% w/w 450 mL Bottle PO ONE (13:49)
--- NOTE | 2016-09-10 20:04 | CP.PCM.PN ---
<Donald Feliciano - Last Filed: 09/10/16 20:00> Subjective - Date & Time of Evaluation Date of Evaluation: 09/10/16 Time of Evaluation: 07:50 - Subjective Subjective: 40F PMH of HTN and Panic attacks who experienced a syncopal episode while working. Today, she states she feels a little better. She complains of mild headache, dizziness, weakness and slight abdominal pain in the RLQ. She denies chest pain, shortness of breath, and is tolerating her diet. Objective - Vital Signs/Intake and Output Vital Signs (last 24 hours): Temp Pulse Resp BP Pulse Ox 98.3 F 47 L 20 147/85 98 09/10/16 09:05 09/10/16 10:00 09/10/16 09:05 09/10/16 09:05 09/10/16 09:05 Intake and Output: 09/10/16 09/11/16 18:59 06:59 Intake Total 2710 Output Total 1200 Balance 1510 - Medications Medications: Current Medications Acetaminophen (Tylenol 325mg Tab) 650 mg PO Q6H PRN PRN Reason: Fever >100.4 or headache Last Admin: 09/10/16 04:22 Dose: 650 mg Acetaminophen/Butalbital/Caffeine (Fioricet) 1 tab PO Q4H PRN PRN Reason: Migraine headache Last Admin: 09/10/16 17:27 Dose: 1 tab Docusate Sodium (Colace) 100 mg PO TID [facility] Last Admin: 09/10/16 17:26 Dose: 100 mg Ferrous Sulfate (Feosol) 324 mg PO TID [facility] Last Admin: 09/10/16 17:27 Dose: 324 mg Heparin Sodium (Porcine) (Heparin) 5,000 units SC Q12 [facility] PRN Reason: Protocol Last Admin: 09/10/16 09:25 Dose: 5,000 units Ceftriaxone Sodium (Rocephin 1 Gram Ivpb) 100 mls @ 100 mls/hr IVPB DAILY [facility] PRN Reason: Protocol Last Admin: 09/10/16 09:25 Dose: 100 mls/hr Potassium Chloride 40 meq/ (Sodium Chloride) 1,020 mls @ 100 mls/hr IV .[id number] [facility] Lorazepam (Ativan) 1 mg PO BID PRN; Protocol PRN Reason: Dizziness Last Admin: 09/09/16 03:42 Dose: 1 mg Meclizine HCl (Antivert) 25 mg PO Q8H PRN PRN Reason: Dizziness Last Admin: 09/09/16 13:34 Dose: 25 mg Ondansetron HCl (Zofran Inj) 4 mg IVP Q6H PRN PRN Reason: Nausea/Vomiting Last Admin: 09/10/16 09:26 Dose: 4 mg Pantoprazole Sodium (Protonix Ec Tab) 40 mg PO 0630 [facility] Last Admin: 09/10/16 06:24 Dose: 40 mg Polyethylene Glycol (Miralax) 17 gm PO BID PRN PRN Reason: Constipation Promethazine HCl (Phenergan Tab) 25 mg PO Q6 PRN PRN Reason: nausea and vomiting Last Admin: 09/10/16 04:24 Dose: 25 mg - Labs Labs: 09/10/16 07:00 09/10/16 07:00 PT 10.9 Seconds (9.9-11.8) 09/06/16 20:10 INR 1.01 (0.93-1.08) 09/06/16 20:10 APTT 23.1 Seconds (23.7-30.8) L 09/06/16 20:10 - Constitutional Appears: Non-toxic, No Acute Distress - Head Exam Head Exam: ATRAUMATIC, NORMOCEPHALIC - Eye Exam Eye Exam: EOMI - ENT Exam ENT Exam: Mucous Membranes Moist - Neck Exam Neck Exam: Full ROM - Respiratory Exam Respiratory Exam: Clear to Ausculation Bilateral, NORMAL BREATHING PATTERN - Cardiovascular Exam Cardiovascular Exam: REGULAR RHYTHM, RRR, +S1, +S2. absent: JVD - GI/Abdominal Exam GI & Abdominal Exam: Soft, Tenderness (mild, RLQ), Normal Bowel Sounds - Extremities Exam Extremities Exam: Full ROM. absent: Joint Swelling, Pedal Edema - Back Exam Back Exam: NORMAL INSPECTION - Neurological Exam Neurological Exam: Alert, Awake, Oriented x3 - Psychiatric Exam Psychiatric exam: Normal Affect, Normal Mood - Skin Skin Exam: Dry, Intact, Normal Color, Warm Assessment and Plan - Assessment and Plan (Free Text) Plan: Near Syncope: Head CT - no evidence of acute intracranial abnormality Brain MRI - No evidence of recent infarct. No mass lesion seen. - A few very tiny nonspecific signal of foci in left white matter tract; probably representing minor microvascular changes (please see full report) EKG - voltage criteria for LVH ECHO -LV is normal size, normal LV wall thickness, LV EF is in normal range -grade one abnormal relaxation pattern -mild TR, mild pulm htn EEG -Normal EEG, no epileptiform activity seen in the EEG recording Neuro Consult - Dr. Sotero Barfield - cardiac vs seizure - dizziness, likely labyrinthine dysfunction - stop Meclizine, start lorazepam - continue Zofran - r/o arrhythmia Anemia: H/H: 9.5/29.2 Feosol 324 mg po tid Iron, TIBC, % Sat, Ferritin all WNL Hypothyroid: TSH WNL Vertigo: Head CT - no evidence of acute intracranial abnormality Neuro consult, Dr. Krystal Barfield, help appreciated. Ativan 1 mg po bid Fever: Tmax 100.4 Urine cultures Gram + cocci -on Ceftriaxone Blood cultures NG24 CXR - negative (please see full report) Rocephin 1 gm IV qd Tylenol prn for fever > 100.4 Headache: Fioricet 1 tab po q4h prn Prophylactic Measures: DVT: SCDs, heparin 5000 units sc q12h GI: Protonix 40 mg po qd Zofran/Phenergan prn for nausea NS 100 cc/hr Constipation -Miralax/Colace Dispo Physical Therapy has evaluted the patient and recommends sub acute rehab <Kristin Solis - Last Filed: 09/11/16 16:57> Objective - Vital Signs/Intake and Output Vital Signs (last 24 hours): Temp Pulse Resp BP Pulse Ox 98.3 F 44 L 20 149/74 100 09/11/16 08:36 09/11/16 08:36 09/11/16 08:36 09/11/16 08:36 09/11/16 08:36 Intake and Output: 09/11/16 09/11/16 06:59 18:59 Intake Total 300 1860 Output Total 300 800 Balance 0 1060 - Medications Medications: Current Medications Acetaminophen (Tylenol 325mg Tab) 650 mg PO Q6H PRN PRN Reason: Fever >100.4 or headache Last Admin: 09/10/16 04:22 Dose: 650 mg Acetaminophen/Butalbital/Caffeine (Fioricet) 1 tab PO Q4H PRN PRN Reason: Migraine headache Last Admin: 09/11/16 12:32 Dose: 1 tab Ferrous Sulfate (Feosol) 324 mg PO TID [facility] Last Admin: 09/11/16 15:30 Dose: Not Given Heparin Sodium (Porcine) (Heparin) 5,000 units SC Q12 [facility] PRN Reason: Protocol Last Admin: 09/11/16 09:30 Dose: 5,000 units Hydrocortisone (Anusol-Hc) 0 gm DC BID [facility] Potassium Chloride 40 meq/ (Sodium Chloride) 1,020 mls @ 100 mls/hr IV .[id number] [facility] Last Admin: 09/11/16 09:38 Dose: 100 mls/hr Ondansetron HCl (Zofran Inj) 4 mg IVP Q6H PRN PRN Reason: Nausea/Vomiting Last Admin: 09/10/16 09:26 Dose: 4 mg Pantoprazole Sodium (Protonix Ec Tab) 40 mg PO 0630 [facility] Last Admin: 09/11/16 06:02 Dose: 40 mg Promethazine HCl (Phenergan Tab) 25 mg PO Q6 PRN PRN Reason: nausea and vomiting Last Admin: 09/10/16 04:24 Dose: 25 mg - Labs Labs: 09/11/16 07:15 09/11/16 07:15 PT 10.9 Seconds (9.9-11.8) 09/06/16 20:10 INR 1.01 (0.93-1.08) 09/06/16 20:10 APTT 23.1 Seconds (23.7-30.8) L 09/06/16 20:10 Assessment and Plan - Assessment and Plan (Free Text) Assessment: attending note; Patient seen and examined with resident. Patient is a 40-year-old female with the history of HTN, panic attacks, uterine fibroids who got admitted for evaluation of near syncope. Head CT, Brain MRI did not show any acute findings. EEG is normal. No arrythmia noted on EKG or tele strips. Echo normal. Treated with IV rocephin for UTI. urine culture showed Staphylococcus. She also has anemia secondary to iron deficiency. Started on feosol. Neurology evaluation appreciated. PT evaluation requested. Meclizine helped her a little but ativan is not helping at all as per patient. Out of bed to chair requested. Attending/Attestation - Attestation I have personally seen and examined this patient.: Yes I have fully participated in the care of the patient.: Yes I have reviewed all pertinent clinical information, including history, physical exam and plan: Yes
[2016-09-10 20:16] VITALS: O2SAT 100
--- NOTE | 2016-09-11 04:52 | CP.PCM.PN ---
<Brooke Valenzuela - Last Filed: 09/11/16 04:57> Subjective - Date & Time of Evaluation Date of Evaluation: 09/11/16 Time of Evaluation: 04:48 - Subjective Subjective: Night float, PGY-1 Pt has new onset diarrhea after taking colace and PO contrast for CT. Denies flatulance. Denies abdominal pain. (+) burning sensation at intergluteal cleft. Objective - Vital Signs/Intake and Output Vital Signs (last 24 hours): Temp Pulse Resp BP Pulse Ox 98 F 45 L 19 161/77 H 100 09/10/16 16:00 09/10/16 16:00 09/10/16 16:00 09/10/16 16:00 09/10/16 16:00 Intake and Output: 09/10/16 09/11/16 18:59 06:59 Intake Total 2710 300 Output Total 1200 300 Balance 1510 0 - Medications Medications: Current Medications Acetaminophen (Tylenol 325mg Tab) 650 mg PO Q6H PRN PRN Reason: Fever >100.4 or headache Last Admin: 09/10/16 04:22 Dose: 650 mg Acetaminophen/Butalbital/Caffeine (Fioricet) 1 tab PO Q4H PRN PRN Reason: Migraine headache Last Admin: 09/10/16 22:28 Dose: 1 tab Docusate Sodium (Colace) 100 mg PO TID [facility] Last Admin: 09/10/16 17:26 Dose: 100 mg Ferrous Sulfate (Feosol) 324 mg PO TID [facility] Last Admin: 09/10/16 17:27 Dose: 324 mg Heparin Sodium (Porcine) (Heparin) 5,000 units SC Q12 [facility] PRN Reason: Protocol Last Admin: 09/10/16 22:21 Dose: 5,000 units Ceftriaxone Sodium (Rocephin 1 Gram Ivpb) 100 mls @ 100 mls/hr IVPB DAILY [facility] PRN Reason: Protocol Last Admin: 09/10/16 09:25 Dose: 100 mls/hr Potassium Chloride 40 meq/ (Sodium Chloride) 1,020 mls @ 100 mls/hr IV .[id number] [facility] Last Admin: 09/10/16 22:21 Dose: 100 mls/hr Lorazepam (Ativan) 1 mg PO BID PRN; Protocol PRN Reason: Dizziness Last Admin: 09/09/16 03:42 Dose: 1 mg Meclizine HCl (Antivert) 25 mg PO Q8H PRN PRN Reason: Dizziness Last Admin: 09/09/16 13:34 Dose: 25 mg Ondansetron HCl (Zofran Inj) 4 mg IVP Q6H PRN PRN Reason: Nausea/Vomiting Last Admin: 09/10/16 09:26 Dose: 4 mg Pantoprazole Sodium (Protonix Ec Tab) 40 mg PO 0630 [facility] Last Admin: 09/10/16 06:24 Dose: 40 mg Polyethylene Glycol (Miralax) 17 gm PO BID PRN PRN Reason: Constipation Promethazine HCl (Phenergan Tab) 25 mg PO Q6 PRN PRN Reason: nausea and vomiting Last Admin: 09/10/16 04:24 Dose: 25 mg - Labs Labs: 09/10/16 07:00 09/10/16 07:00 PT 10.9 Seconds (9.9-11.8) 09/06/16 20:10 INR 1.01 (0.93-1.08) 09/06/16 20:10 APTT 23.1 Seconds (23.7-30.8) L 09/06/16 20:10 - Constitutional Appears: No Acute Distress - Head Exam Head Exam: ATRAUMATIC, NORMOCEPHALIC - Eye Exam Eye Exam: EOMI, Normal appearance, PERRL Pupil Exam: NORMAL ACCOMODATION - ENT Exam ENT Exam: Mucous Membranes Moist - GI/Abdominal Exam GI & Abdominal Exam: Soft, Hyperactive Bowel Sounds. absent: Guarding, Rigid, Tenderness - Exam Additional comments: external hemorrhoid visible at anus. No skin breakdown at perianal and intergluteal region. No increased redness, ulceration, blister. Barrier cream applied Assessment and Plan - Assessment and Plan (Free Text) Plan: A: Diarrhea from PO contrast vs colace vs Fe supplement Mild skin irritation from diarrhea and excessive wiping P: - continue IVF - hold laxative - Cdiff toxin and antigen ordered - skin barrier cream - education about dabbing by facial tissue. Do not apply excessive wiping friction <Elizabeth Kahn - Last Filed: 09/11/16 07:04> Objective - Vital Signs/Intake and Output Vital Signs (last 24 hours): Temp Pulse Resp BP Pulse Ox 98 F 45 L 19 161/77 H 100 09/10/16 16:00 09/10/16 16:00 09/10/16 16:00 09/10/16 16:00 09/10/16 16:00 Intake and Output: 09/11/16 09/11/16 06:59 18:59 Intake Total 300 Output Total 300 Balance 0 - Medications Medications: Current Medications Acetaminophen (Tylenol 325mg Tab) 650 mg PO Q6H PRN PRN Reason: Fever >100.4 or headache Last Admin: 09/10/16 04:22 Dose: 650 mg Acetaminophen/Butalbital/Caffeine (Fioricet) 1 tab PO Q4H PRN PRN Reason: Migraine headache Last Admin: 09/11/16 06:02 Dose: 1 tab Docusate Sodium (Colace) 100 mg PO TID [facility] Last Admin: 09/10/16 17:26 Dose: 100 mg Ferrous Sulfate (Feosol) 324 mg PO TID [facility] Last Admin: 09/10/16 17:27 Dose: 324 mg Heparin Sodium (Porcine) (Heparin) 5,000 units SC Q12 [facility] PRN Reason: Protocol Last Admin: 09/10/16 22:21 Dose: 5,000 units Ceftriaxone Sodium (Rocephin 1 Gram Ivpb) 100 mls @ 100 mls/hr IVPB DAILY [facility] PRN Reason: Protocol Last Admin: 09/10/16 09:25 Dose: 100 mls/hr Potassium Chloride 40 meq/ (Sodium Chloride) 1,020 mls @ 100 mls/hr IV .[id number] [facility] Last Admin: 09/11/16 05:59 Dose: 100 mls/hr Lorazepam (Ativan) 1 mg PO BID PRN; Protocol PRN Reason: Dizziness Last Admin: 09/09/16 03:42 Dose: 1 mg Meclizine HCl (Antivert) 25 mg PO Q8H PRN PRN Reason: Dizziness Last Admin: 09/09/16 13:34 Dose: 25 mg Ondansetron HCl (Zofran Inj) 4 mg IVP Q6H PRN PRN Reason: Nausea/Vomiting Last Admin: 09/10/16 09:26 Dose: 4 mg Pantoprazole Sodium (Protonix Ec Tab) 40 mg PO 0630 [facility] Last Admin: 09/11/16 06:02 Dose: 40 mg Polyethylene Glycol (Miralax) 17 gm PO BID PRN PRN Reason: Constipation Promethazine HCl (Phenergan Tab) 25 mg PO Q6 PRN PRN Reason: nausea and vomiting Last Admin: 09/10/16 04:24 Dose: 25 mg - Labs Labs: 09/10/16 07:00 09/10/16 07:00 PT 10.9 Seconds (9.9-11.8) 09/06/16 20:10 INR 1.01 (0.93-1.08) 09/06/16 20:10 APTT 23.1 Seconds (23.7-30.8) L 09/06/16 20:10 Attending/Attestation - Attestation I have personally seen and examined this patient.: No I have fully participated in the care of the patient.: Yes I have reviewed all pertinent clinical information, including history, physical exam and plan: Yes
[2016-09-11] MEDS: Pantoprazole 40 mg EC Tab PO SCH (06:02)
[2016-09-11] MEDS: Apap-Butalbital-Caffeine 325-50-40mg Tab PO PRN ×2 (06:02→12:32)
[2016-09-11 07:41] LABS: ADD MANUAL DIFF? NO
[2016-09-11 07:49] LABS: BASO # 0.01 K/mm3 (0.0-2.0); BASO % 0.3 % (0.0-3.0); EOS # 0.1 (0.0-0.7); EOS % 2.1 % (1.5-5.0); GRAN # 1.78 (1.4-6.5); GRAN % 46.5 % (50.0-68.0); HEMATOCRIT 28.1 % (36.0-48.0); LYMPH # 1.7 (1.2-3.4); LYMPH % 43.3 % (22.0-35.0); MEAN CELL VOLUME 80.1 fL (80.0-105.0); MEAN CORPUSCULAR HEMOGLOBIN 26.8 pg (25.0-35.0); MEAN CORPUSCULAR HGB CONC 33.5 g/dl (31.0-37.0); MEAN PLATELET VOLUME 9.7 fl (7.0-11.0); MONO # 0.3 (0.1-0.6); MONO % 7.8 % (1.0-6.0); PLATELET COUNT 191 10^3/uL (120.0-450.0); WHITE BLOOD COUNT 3.8 10^3/ul (4.5-11.0)
[2016-09-11 08:12] LABS: ALB/GLOB RATIO 1.1 (1.1-1.8); ALKALINE PHOSPHATASE 44 U/L (38-133); ALT/SGPT 42 U/L (7-56); AST/SGOT 28 U/L (15-39); BILIRUBIN,TOTAL 0.4 mg/dL (0.2-1.3); BLOOD UREA NITROGEN 3 mg/dL (7-21); CALCIUM 8.2 mg/dL (8.4-10.5); CARBON DIOXIDE 23 mmol/L (21-33); CHLORIDE 106 mmol/L (98-107); GFR AFRICAN-AMERICAN > 60; GLUCOSE,RANDOM 70 mg/dL (70-110); POTASSIUM 3.8 mmol/L (3.6-5.0); SODIUM 138 mmol/L (132-148); TOTAL PROTEIN 6.2 g/dL (5.8-8.3)
[2016-09-11 08:37] VITALS: RESP 20
[2016-09-11] MEDS: cefTRIAXone 1 gm 100 ML IVPB SCH (09:31)
--- NOTE | 2016-09-11 10:07 | PN ---
DATE: 09/11/2016 SUBJECTIVE: The patient is lying on the bed, in no acute distress. She said her dizziness is better . She does complain of a mild headache. Apparently, the patient was not able to walk as her legs ar e giving away and she had complained that she was dizzy. PHYSICAL EXAMINATION: VITAL SIGNS: Her blood pressure is 149/74, heart rate is 44 per minute, breathing at a rate of 16 pe r minute, temperature is 98.3 degrees Fahrenheit. HEENT: Head is normocephalic, atraumatic. NECK: Supple. There are no carotid bruits. LUNGS: Clear. CARDIOVASCULAR: S1, S2 audible. No murmurs. ABDOMEN: Soft, nontender. Bowel sounds present. NEUROLOGIC EXAMINATION: MENTAL STATUS: The patient is awake, alert, oriented to time, place and person. Speech is fluent. Naming and repetition normal. Memory and cognition are intact. CRANIAL NERVES: Pupils are 4 mm bilaterally reactive to light. Visual cooper are full. Extraocular movements are intact. There is no facial asymmetry. Palate is upgoing bilaterally and tongue is mi dline. MOTOR: Tone is normal. Power is 5/5 bilaterally in all extremities. Reflexes +2 and symmetrical. Plantars downgoing bilaterally. SENSORY: Intact to soft touch, pinprick. LABORATORY DATA: Reviewed, shows WBC of 3.8, hemoglobin 9.4, hematocrit 28.1 and platelets of 191. Her sodium is 138, potassium 3.8, chloride 106, carbon dioxide 23, BUN of 3, creatinine of 0.6 and gl ucose of 70. IMPRESSION: Status post dizziness, possibly secondary to labyrinthine dysfunction. RECOMMENDATIONS: 1. I do not see a reason why the patient cannot stand up and walk. The patient to have physical the rapy for gait and balance. 2. The patient's dizziness is better now. 3. I will discontinue her Ativan as well as meclizine as her dizziness is better at the moment. 4. Please continue supportive care and other treatment. Thank you for the opportunity to participate in the care of this patient. Sotero Barfield MD cc: [id number] TT: 09/11/2016 10:07:25 Confirmation # [id number] Dictation # [id number] mn
--- NOTE | 2016-09-11 10:17 | CT ---
PROCEDURE: CT Abdomen and pelvis dated 09/10/2016. . HISTORY: RLQ pain COMPARISON: None. TECHNIQUE: Contiguous axial images of the abdomen and pelvis performed following oral contrast administration. IV contrast not injected per request. The study is therefore somewhat limited due to the lack of circulating intravenous contrast material. . Coronal and Sagittal reformats generated. Radiation dose: Total exam DLP = 555.94 mGy-cm. FINDINGS: LOWER THORAX: Mild atelectasis both posterior lower lung cooper. No effusion or basilar pneumothorax. Heart size within range of normal. No significant pericardial effusion. There is a small hiatal hernia. LIVER: Liver exhibits normal size measuring approximately 16.1 cm in CC dimension. Liver exhibits normal attenuation pattern without mass collection or calcification. . GALLBLADDER AND BILE DUCTS: Gallbladder is moderately distended. No intraluminal gallbladder calculi. No evidence of pericholecystic fluid collection. PANCREAS: The pancreas appears grossly unremarkable. SPLEEN: Spleen exhibits normal size and attenuation pattern without mass collection or calcification. ADRENALS: There are no adrenal lesions seen. KIDNEYS AND URETERS: The kidneys exhibit symmetric size. No evidence of nephrolithiasis or hydronephrosis. No obvious renal mass or collection. BLADDER: Urinary bladder is physiologically distended. No evidence of intraluminal urinary bladder calculi. REPRODUCTIVE: Questionable 2.55 cm right adnexal space; pelvic ultrasound could be performed confirm. APPENDIX: There appears to be normal caliber under opacified appendix best seen on axial image number [id number]. No periappendiceal inflammatory changes. BOWEL: Evaluation of the bowel is limited due to incomplete opacification. The stomach is under opacified and on is distended, the latter of which presumably accounts for slight thick-walled appearance. Visualized loops of small bowel exhibit normal contour and caliber. No evidence acute mechanical small bowel obstruction with oral contrast material extending into the colon. Note is made of slight wall thickening of the distal descending and sigmoid colon which may in part be due to incomplete distention, peristalsis and under opacified stool however nonspecific mural wall thickening -colitis cannot be excluded. Clinical correlation recommended. PERITONEUM: Unremarkable. No fluid collection. No free air. Small fat containing umbilical hernia. . LYMPH NODES: Unremarkable. No enlarged lymph nodes. VASCULATURE: Unremarkable. No aortic aneurysm. BONES: Minor multilevel degenerative spondylosis of the lower thoracic and lumbar spine. OTHER FINDINGS: None. IMPRESSION: Suspect at right adnexal cyst. Pelvic ultrasound recommended to confirm. Mild wall thickening of the sigmoid and distal descending colon likely due to incomplete distention peristalsis and under opacified stool however possibility of nonspecific mural thickening/colitis cannot be completely excluded. Clinical correlation recommended.
--- NOTE | 2016-09-11 11:34 | CP.PCM.PN ---
<Donald Feliciano - Last Filed: 09/11/16 17:12> Subjective - Date & Time of Evaluation Date of Evaluation: 09/11/16 Time of Evaluation: 07:40 - Subjective Subjective: 40F PMH of HTN and Panic attacks who experienced a syncopal episode while working. Overnight she had multiple episodes of diarrhea and c/o burning sensation after aggressively wiping her intergluteal cleft. She was instructed how to wipe appropiatley. Her miralax and colace were stopped. Today, she states she feels a little better compared to the previous day and still complains of slight headache. She denies chest pain, shortness of breath, and is tolerating her diet. Her appetite is also improving. Objective - Vital Signs/Intake and Output Vital Signs (last 24 hours): Temp Pulse Resp BP Pulse Ox 98.3 F 44 L 20 149/74 100 09/11/16 08:36 09/11/16 08:36 09/11/16 08:36 09/11/16 08:36 09/11/16 08:36 Intake and Output: 09/11/16 09/11/16 06:59 18:59 Intake Total 300 1320 Output Total 300 800 Balance 0 520 - Medications Medications: Current Medications Acetaminophen (Tylenol 325mg Tab) 650 mg PO Q6H PRN PRN Reason: Fever >100.4 or headache Last Admin: 09/10/16 04:22 Dose: 650 mg Acetaminophen/Butalbital/Caffeine (Fioricet) 1 tab PO Q4H PRN PRN Reason: Migraine headache Last Admin: 09/11/16 06:02 Dose: 1 tab Docusate Sodium (Colace) 100 mg PO TID [facility] Last Admin: 09/10/16 17:26 Dose: 100 mg Ferrous Sulfate (Feosol) 324 mg PO TID [facility] Last Admin: 09/11/16 09:31 Dose: 324 mg Heparin Sodium (Porcine) (Heparin) 5,000 units SC Q12 [facility] PRN Reason: Protocol Last Admin: 09/11/16 09:30 Dose: 5,000 units Ceftriaxone Sodium (Rocephin 1 Gram Ivpb) 100 mls @ 100 mls/hr IVPB DAILY [facility] PRN Reason: Protocol Last Admin: 09/11/16 09:31 Dose: 100 mls/hr Potassium Chloride 40 meq/ (Sodium Chloride) 1,020 mls @ 100 mls/hr IV .[id number] [facility] Last Admin: 09/11/16 09:38 Dose: 100 mls/hr Ondansetron HCl (Zofran Inj) 4 mg IVP Q6H PRN PRN Reason: Nausea/Vomiting Last Admin: 09/10/16 09:26 Dose: 4 mg Pantoprazole Sodium (Protonix Ec Tab) 40 mg PO 0630 [facility] Last Admin: 09/11/16 06:02 Dose: 40 mg Polyethylene Glycol (Miralax) 17 gm PO BID PRN PRN Reason: Constipation Promethazine HCl (Phenergan Tab) 25 mg PO Q6 PRN PRN Reason: nausea and vomiting Last Admin: 09/10/16 04:24 Dose: 25 mg - Labs Labs: 09/11/16 07:15 09/11/16 07:15 PT 10.9 Seconds (9.9-11.8) 09/06/16 20:10 INR 1.01 (0.93-1.08) 09/06/16 20:10 APTT 23.1 Seconds (23.7-30.8) L 09/06/16 20:10 - Constitutional Appears: Non-toxic, No Acute Distress - Head Exam Head Exam: ATRAUMATIC, NORMOCEPHALIC - Eye Exam Eye Exam: EOMI - ENT Exam ENT Exam: Mucous Membranes Moist - Neck Exam Neck Exam: Full ROM. absent: Lymphadenopathy - Respiratory Exam Respiratory Exam: Clear to Ausculation Bilateral, NORMAL BREATHING PATTERN - Cardiovascular Exam Cardiovascular Exam: REGULAR RHYTHM, RRR, +S1, +S2 - GI/Abdominal Exam GI & Abdominal Exam: Soft, Tenderness, Normal Bowel Sounds - Neurological Exam Neurological Exam: Alert, Awake, Oriented x3 - Psychiatric Exam Psychiatric exam: Normal Affect, Normal Mood - Skin Skin Exam: Dry, Intact, Normal Color, Warm Assessment and Plan - Assessment and Plan (Free Text) Plan: Near Syncope: Head CT - no evidence of acute intracranial abnormality Brain MRI - No evidence of recent infarct. No mass lesion seen. - A few very tiny nonspecific signal of foci in left white matter tract; probably representing minor microvascular changes (please see full report) EKG - voltage criteria for LVH ECHO -LV is normal size, normal LV wall thickness, LV EF is in normal range -grade one abnormal relaxation pattern -mild TR, mild pulm htn EEG -Normal EEG, no epileptiform activity seen in the EEG recording Neuro Consult - Dr. Sotero Barfield - dizziness improving - stop Meclizine, stop lorazepam - continue supportive care RLQ Pain: -GI consult -no obvious organic cause for pt's symptoms -CT A/P reviewed, unremarkable Anemia: H/H: 9.5/29.2 Feosol 324 mg po tid Iron, TIBC, % Sat, Ferritin all WNL Hypothyroid: TSH WNL Vertigo: Head CT - no evidence of acute intracranial abnormality Neuro consult, Dr. Krystal Barfield, help appreciated. Ativan 1 mg po bid Diarrhea: stopped Miralax and Colace C. diff culture negative Fever: resolved Tmax 100.4 Urine cultures Gram + cocci -on Ceftriaxone Blood cultures [id number] CXR - negative (please see full report) Rocephin 1 gm IV qd Tylenol prn for fever > 100.4 Headache: Fioricet 1 tab po q4h prn Prophylactic Measures: DVT: SCDs, heparin 5000 units sc q12h GI: Protonix 40 mg po qd Zofran/Phenergan prn for nausea NS 100 cc/hr Constipation -Miralax/Colace Dispo Physical Therapy has evaluted the patient and recommends sub acute rehab -pt refusing sub acute rehab <Kristin Solis - Last Filed: 09/11/16 18:13> Objective - Vital Signs/Intake and Output Vital Signs (last 24 hours): Temp Pulse Resp BP Pulse Ox 98.3 F 44 L 20 149/74 100 09/11/16 08:36 09/11/16 08:36 09/11/16 08:36 09/11/16 08:36 09/11/16 08:36 Intake and Output: 09/11/16 09/11/16 06:59 18:59 Intake Total 300 1860 Output Total 300 800 Balance 0 1060 - Medications Medications: Current Medications Acetaminophen (Tylenol 325mg Tab) 650 mg PO Q6H PRN PRN Reason: Fever >100.4 or headache Last Admin: 09/10/16 04:22 Dose: 650 mg Acetaminophen/Butalbital/Caffeine (Fioricet) 1 tab PO Q4H PRN PRN Reason: Migraine headache Last Admin: 09/11/16 12:32 Dose: 1 tab Ferrous Sulfate (Feosol) 324 mg PO TID [facility] Last Admin: 09/11/16 15:30 Dose: Not Given Heparin Sodium (Porcine) (Heparin) 5,000 units SC Q12 [facility] PRN Reason: Protocol Last Admin: 09/11/16 09:30 Dose: 5,000 units Hydrocortisone (Anusol-Hc) 0 gm LA BID [facility] Potassium Chloride 40 meq/ (Sodium Chloride) 1,020 mls @ 100 mls/hr IV .[id number] [facility] Last Admin: 09/11/16 09:38 Dose: 100 mls/hr Ondansetron HCl (Zofran Inj) 4 mg IVP Q6H PRN PRN Reason: Nausea/Vomiting Last Admin: 09/10/16 09:26 Dose: 4 mg Pantoprazole Sodium (Protonix Ec Tab) 40 mg PO 0630 [facility] Last Admin: 09/11/16 06:02 Dose: 40 mg Promethazine HCl (Phenergan Tab) 25 mg PO Q6 PRN PRN Reason: nausea and vomiting Last Admin: 09/10/16 04:24 Dose: 25 mg - Labs Labs: 09/11/16 07:15 09/11/16 07:15 PT 10.9 Seconds (9.9-11.8) 09/06/16 20:10 INR 1.01 (0.93-1.08) 09/06/16 20:10 APTT 23.1 Seconds (23.7-30.8) L 09/06/16 20:10 Assessment and Plan - Assessment and Plan (Free Text) Assessment: attending note; Patient seen and examined with resident. Patient is a 40-year-old female with the history of HTN, panic attacks, uterine fibroids who got admitted for evaluation of near syncope. Head CT, Brain MRI did not show any acute findings. EEG is normal. Neurology evaluation appreciated. Treated with IV rocephin for UTI. urine culture showed Staphylococcus. She also has anemia secondary to iron deficiency. Started on feosol. psychiatric evaluation appreciated. Patient complained of nausea and vomiting; CT abdomen and pelvis is negative for any acute findings. GI evaluation appreciated. Continue Zofran when necessary. Continue Protonix. GI/DVT prophylaxis. PT evaluation appreciated. Recommending acute rehabilitation. patient is refusing rehabilitation. Will discuss with nurse case manager. Attending/Attestation - Attestation I have personally seen and examined this patient.: Yes I have fully participated in the care of the patient.: Yes I have reviewed all pertinent clinical information, including history, physical exam and plan: Yes
--- NOTE | 2016-09-11 12:03 | CON ---
DATE: 09/11/2016 HISTORY OF PRESENT ILLNESS: Shortly, the patient is a 40-year-old female with not k nown previous psychiatric history, the patient denied. The patient was admitted on the medical floor for evaluation of generalized weakness as well as possible syncopal episode. The patient was seen and examined today as per medical team request because patient had flat affect a nd patient complained of panic attack. The patient was seen and examined. The patient presented to be alert and oriented, seems to be a fair historian, well related to this engineering technical writer. The patient denied being depressed, denied any stress prior to having that panic attack. The patient reported that ini tially she thought that she was hungry and she wanted to sit for a couple of minutes. After that, th e patient felt like room was spinning around and she was feeling dizzy and asked for help while she w as at the hospital. 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 The patient was brought to the [facility] Room. The patient said that she had episodes of confusion and she does not remember what happ ened after. The patient reported that this episode is happening for the first time. She does not geronimo ffer from seizure disorder. The patient denied feeling anxious prior to the syncopal episode. The p atient denied that she was using any drugs. The patient reported that she was not standing for a mary g time before she lost her consciousness. The patient also reported no psychotic symptoms. The stephy ent denied previous history of mental illness. The patient denied being evaluated by psychiatrist be fore. The patient adamantly denied thoughts of harming herself or others. The patient denied any an xiety symptoms, denied hearing voices, denied seeing things, but was confused. Two days ago, patient had impression that people were talking to her but it was very brief. The patient denied any comman d type hallucinations. Denied family history of mental illness. VITAL SIGNS: Stable. Temperature 98.3, pulse is 44, blood pressure 149/74, respiration 20, oxygen s aturation 100. MEDICATIONS: Reviewed. Tylenol, Fioricet, Rocephin 1 gram IV push, Colace, Feosol, heparin, Zofran, Protonix, MiraLax, sodium chloride as well as Phenergan. LABORATORY DATA: Reviewed. Seem to be within normal limits, but WBC cells 3.8, hemoglobin 9.4 and h ematocrit 28.1. Coagulation is reviewed. Chemistry reviewed. Calcium 8.2 which is low, and BUN is 3 which is low. Urinalysis showed blood large, urobilinogen 1.0 (high), leukocyte esterase ____ (hig h). Toxicology positive for barbiturates; maybe it is because of the Fioricet. HIV and Lyme disease screens negative. REPORTS: Reviewed. Discussed with Dr. Barfield and with Dr. Solis. MENTAL STATUS EXAMINATION: The patient presented to be alert and oriented, pleasant and cooperative, well related to this engineering technical writer. Intermittent eye contact. Speech was normal rate, tone, quality, and quantity. Mood described, "I am fine." Affect was reactive, mood congruent. Thought process was co herent and goal directed. Thought content: The patient denied visual, auditory, or tactile hallucin ations. Denied paranoid ideations. The patient denied thoughts of harming herself or others, denied intent or plan. Insight and judgment are fair. Impulses are well controlled. IMPRESSION: This engineering technical writer could not find any pathology for this patient from the psychiatric standpoin t. The patient had episodes of dizziness and lightheadedness as well as feeling that the room was sp inning around. The patient denied episodes of panic attacks. The patient denied any thoughts of danni clara herself or others. PLAN: Continue current management. Continue current medication. Physical therapy evaluation. This engineering technical writer discussed the case with Dr. Barfield as well as Dr. Rivers. The patient most likely needs to go for subacute rehab or acute rehabilitation; this engineering technical writer is not sure. Physical therapy will give advice. From this engineering technical writer's perspective, there is nothing I can implement into the patient's treatmen t. This engineering technical writer could not find any psychotic, depressive or anxiety symptoms. This engineering technical writer will sign off. Thank you very much for letting me participate in care of your patient. Fatimah Louise MD cc: [id number] TT: 09/11/2016 12:02:55 Confirmation # [id number] Dictation # [id number] mn
--- NOTE | 2016-09-11 14:12 | CP.PCM.CON ---
<Harmeet Kaiser - Last Filed: 09/11/16 14:14> History of Present Illness - History of Present Illness History of Present Illness: PGY4 GI Fellow Consult Note Patient is a 40yo female with PMHx of anxiety/panic attacks, HTN who presented to the ED following syncopal episode at work. Our service has been consulted for new onset abdominal pain in the past 24 hours. The patients description of events and symptoms is variable and contradictory. She initially stated that she was having new onset right sided abdominal pain but now admits to cessation of discomfort. She had a CT A/P with PO contrast yesterday and feels she is now bloated and having trouble eating full meal, though she tolerated breakfast without issue and is seen drinking ensure without difficulty. She denies any prior history of abdominal discomfort and currently admits to both diarrhea and constipation, alternating with constipation at this moment. She denies fever, chills, nausea, vomiting. Patient has had an extensive work up to date, all rather unremarkable. PMHx: See HPI PSHx: , D&C SHx: Denies tobacco, alcohol or illicit drug use FHx: Mother - meningitis; Sister - CVA Endo: No prior evaluation Review of Systems - Constitutional Constitutional: Anorexia. absent: Chills, Fever - EENT Eyes: absent: Change in Vision Nose/Mouth/Throat: absent: Sore Throat - Cardiovascular Cardiovascular: absent: Chest Pain, Dyspnea, Edema - Respiratory Respiratory: absent: Cough, Dyspnea, Excessive Mucous Production - Gastrointestinal Gastrointestinal: Abdominal Pain, Bloating, Constipation, Cramping, Diarrhea, Loose Stools. absent: Belching, Dyspepsia, Dysphagia, Hematemesis, Hematochezia , Vomiting - Genitourinary Genitourinary: absent: Dysuria, Urinary Frequency, Urinary Urgency - Musculoskeletal Musculoskeletal: absent: Back Pain, Neck Pain - Integumentary Integumentary: absent: New Lesions, Rash - Neurological Neurological: absent: Dizziness, Numbness, Focal Weakness - Psychiatric Psychiatric: absent: Anxiety, Depression - Endocrine Endocrine: absent: Polydipsia, Polyphagia, Polyuria - Hematologic/Lymphatic Hematologic: absent: Easy Bleeding, Easy Bruising, Lymphadenopathy Past Patient History - Infectious Disease Hx of Infectious Diseases: None - Past Medical History & Family History Past Medical History?: Yes - Past Social History Smoking Status: Never Smoked - CARDIAC Hx Cardiac Disorders: Yes Hx Hypertension: Yes - PULMONARY Hx Respiratory Disorders: No - NEUROLOGICAL Hx Neurological Disorder: No - HEENT Hx HEENT Problems: Yes (GLASSES) - RENAL Hx Chronic Kidney Disease: No - ENDOCRINE/METABOLIC Other/Comment: enlarge thyroid. - HEMATOLOGICAL/ONCOLOGICAL Hx Blood Disorders: No - INTEGUMENTARY Hx Dermatological Problems: No - MUSCULOSKELETAL/RHEUMATOLOGICAL Hx Musculoskeletal Disorders: No - GASTROINTESTINAL Hx Gastrointestinal Disorders: No - GENITOURINARY/GYNECOLOGICAL Hx Genitourinary Disorders: No - PSYCHIATRIC Hx Psychophysiologic Disorder: No Hx Substance Use: No - SURGICAL HISTORY Hx Section: Yes Hx Dilation and Curettage: Yes Other/Comment: RIGHT ARM BULLET EXTRACTION - ANESTHESIA Hx Anesthesia Reactions: Yes (ITCHY ? FROM WHAT) Hx Malignant Hyperthermia: No Meds Allergies/Adverse Reactions: Allergies Allergy/AdvReac Type Severity Reaction Status Date / Time ibuprofen [From Advil] Allergy ANAPHYLAXIS Verified 11/14/15 10:35 - Medications Medications: Current Medications Acetaminophen (Tylenol 325mg Tab) 650 mg PO Q6H PRN PRN Reason: Fever >100.4 or headache Last Admin: 09/10/16 04:22 Dose: 650 mg Acetaminophen/Butalbital/Caffeine (Fioricet) 1 tab PO Q4H PRN PRN Reason: Migraine headache Last Admin: 09/11/16 12:32 Dose: 1 tab Docusate Sodium (Colace) 100 mg PO TID [facility] Last Admin: 09/10/16 17:26 Dose: 100 mg Ferrous Sulfate (Feosol) 324 mg PO TID [facility] Last Admin: 09/11/16 09:31 Dose: 324 mg Heparin Sodium (Porcine) (Heparin) 5,000 units SC Q12 [facility] PRN Reason: Protocol Last Admin: 09/11/16 09:30 Dose: 5,000 units Ceftriaxone Sodium (Rocephin 1 Gram Ivpb) 100 mls @ 100 mls/hr IVPB DAILY [facility] PRN Reason: Protocol Last Admin: 09/11/16 09:31 Dose: 100 mls/hr Potassium Chloride 40 meq/ (Sodium Chloride) 1,020 mls @ 100 mls/hr IV .[id number] [facility] Last Admin: 09/11/16 09:38 Dose: 100 mls/hr Ondansetron HCl (Zofran Inj) 4 mg IVP Q6H PRN PRN Reason: Nausea/Vomiting Last Admin: 09/10/16 09:26 Dose: 4 mg Pantoprazole Sodium (Protonix Ec Tab) 40 mg PO 0630 [facility] Last Admin: 09/11/16 06:02 Dose: 40 mg Polyethylene Glycol (Miralax) 17 gm PO BID PRN PRN Reason: Constipation Last Admin: 09/11/16 12:16 Dose: 17 gm Promethazine HCl (Phenergan Tab) 25 mg PO Q6 PRN PRN Reason: nausea and vomiting Last Admin: 09/10/16 04:24 Dose: 25 mg Physical Exam - Constitutional Appears: Non-toxic, No Acute Distress - Eye Exam Eye Exam: EOMI, PERRL - ENT Exam ENT Exam: Mucous Membranes Moist - Respiratory Exam Respiratory Exam: Clear to Auscultation Bilateral. absent: Rales, Rhonchi, Wheezes - Cardiovascular Exam Cardiovascular Exam: RRR, +S1, +S2 - GI/Abdominal Exam GI & Abdominal Exam: Normal Bowel Sounds, Soft. absent: Distended, Firm, Guarding, Organomegaly, Rigid, Tenderness - Extremities Exam Extremities exam: Positive for: normal inspection. Negative for: pedal edema - Neurological Exam Neurological exam: Alert, Oriented x3 - Psychiatric Exam Psychiatric exam: Normal Affect, Normal Mood - Skin Skin Exam: Dry, Warm Results - Vital Signs Recent Vital Signs: Last Vital Signs Temp 98.3 F 09/11/16 08:36 Pulse 44 L 09/11/16 08:36 Resp 20 09/11/16 08:36 BP 149/74 09/11/16 08:36 Pulse Ox 100 09/11/16 08:36 - Labs Result Diagrams: 09/11/16 07:15 09/11/16 07:15 Labs: Laboratory Results - last 24 hr 09/10/16 09/10/16 09/10/16 13:00 15:56 23:04 WBC RBC Hgb Hct MCV MCH MCHC RDW Plt Count MPV Gran % Lymph % (Auto) [place] % (Auto) Eos % (Auto) Baso % (Auto) Gran # Lymph # [place] # Eos # Baso # Sodium Potassium Chloride Carbon Dioxide Anion Gap BUN Creatinine Est GFR ( Amer) Est GFR (Non-Af Amer) POC Glucose (mg/dL) 66 100 Random Glucose Calcium Total Bilirubin AST ALT Alkaline Phosphatase Total Protein Albumin Globulin Albumin/Globulin Ratio Lyme Disease Screen 0.50 09/11/16 09/11/16 09/11/16 07:15 07:37 11:30 WBC 3.8 L RBC 3.51 Hgb 9.4 L Hct 28.1 L MCV 80.1 MCH 26.8 MCHC 33.5 RDW 13.0 Plt Count 191 MPV 9.7 Gran % 46.5 L Lymph % (Auto) 43.3 H [place] % (Auto) 7.8 H Eos % (Auto) 2.1 Baso % (Auto) 0.3 Gran # 1.78 Lymph # 1.7 [place] # 0.3 Eos # 0.1 Baso # 0.01 Sodium 138 Potassium 3.8 Chloride 106 Carbon Dioxide 23 Anion Gap 13 BUN 3 L Creatinine 0.6 Est GFR ( Amer) > 60 Est GFR (Non-Af Amer) > 60 POC Glucose (mg/dL) 68 104 Random Glucose 70 Calcium 8.2 L Total Bilirubin 0.4 AST 28 ALT 42 Alkaline Phosphatase 44 Total Protein 6.2 Albumin 3.2 Globulin 3.0 Albumin/Globulin Ratio 1.1 Lyme Disease Screen Assessment & Plan - Assessment and Plan (Free Text) Assessment: Patient is a 40yo female with PMHx of anxiety/panic attacks, HTN who presented to the ED following syncopal episode at work. Our service has been consulted for new onset abdominal pain in the past 24 hours. -Abdominal pain -Diarrhea/Constipation Plan: -There is no obvious organic cause for the patient's symptoms -CT A/P reviewed; unremarkable -No plan for endoscopic intervention at this time -Would decrease/discontinue as many medications as possible -Advance to regular diet -Recommend outpatient follow up with patient's PCP and referral for GI as needed -Will sign off. Thank you for allowing us to participate in the care of your patient. - Date & Time Date: 09/11/16 Time: 11:15 <Jose Aden MD - Last Filed: 09/11/16 17:51> Meds - Medications Medications: Current Medications Acetaminophen (Tylenol 325mg Tab) 650 mg PO Q6H PRN PRN Reason: Fever >100.4 or headache Last Admin: 09/10/16 04:22 Dose: 650 mg Acetaminophen/Butalbital/Caffeine (Fioricet) 1 tab PO Q4H PRN PRN Reason: Migraine headache Last Admin: 09/11/16 12:32 Dose: 1 tab Ferrous Sulfate (Feosol) 324 mg PO TID [facility] Last Admin: 09/11/16 15:30 Dose: Not Given Heparin Sodium (Porcine) (Heparin) 5,000 units SC Q12 [facility] PRN Reason: Protocol Last Admin: 09/11/16 09:30 Dose: 5,000 units Hydrocortisone (Anusol-Hc) 0 gm CA BID [facility] Potassium Chloride 40 meq/ (Sodium Chloride) 1,020 mls @ 100 mls/hr IV .[id number] [facility] Last Admin: 09/11/16 09:38 Dose: 100 mls/hr Ondansetron HCl (Zofran Inj) 4 mg IVP Q6H PRN PRN Reason: Nausea/Vomiting Last Admin: 09/10/16 09:26 Dose: 4 mg Pantoprazole Sodium (Protonix Ec Tab) 40 mg PO 0630 [facility] Last Admin: 09/11/16 06:02 Dose: 40 mg Promethazine HCl (Phenergan Tab) 25 mg PO Q6 PRN PRN Reason: nausea and vomiting Last Admin: 09/10/16 04:24 Dose: 25 mg Results - Vital Signs Recent Vital Signs: Last Vital Signs Temp 98.3 F 09/11/16 08:36 Pulse 44 L 09/11/16 08:36 Resp 20 09/11/16 08:36 BP 149/74 09/11/16 08:36 Pulse Ox 100 09/11/16 08:36 - Labs Result Diagrams: 09/11/16 07:15 09/11/16 07:15 Labs: Laboratory Results - last 24 hr 09/10/16 09/10/16 09/10/16 08:00 13:00 23:04 WBC RBC Hgb Hct MCV MCH MCHC RDW Plt Count MPV Gran % Lymph % (Auto) [place] % (Auto) Eos % (Auto) Baso % (Auto) Gran # Lymph # [place] # Eos # Baso # Sodium Potassium Chloride Carbon Dioxide Anion Gap BUN Creatinine Est GFR ( Amer) Est GFR (Non-Af Amer) POC Glucose (mg/dL) 100 Random Glucose Calcium Total Bilirubin AST ALT Alkaline Phosphatase Total Protein Albumin Globulin Albumin/Globulin Ratio Aldolase 3.9 Lyme Disease Screen 0.50 Lyme IgG 18 kDa Band Nonreactive Lyme IgG 23 kDa Band Nonreactive Lyme IgG 28 kDa Band Nonreactive Lyme IgG 30 kDa Band Nonreactive Lyme IgG 39 kDa Band Nonreactive Lyme IgG 41 kDa Band Nonreactive Lyme IgG 45 kDa Band Nonreactive Lyme IgG 58 kDa Band Nonreactive Lyme IgG 66 kDa Band Reactive H Lyme IgG 93 kDa Band Nonreactive Lyme IgG W Blot Interp Negative Lyme IgM 23 kDa Band Reactive H Lyme IgM 39 kDa Band Nonreactive Lyme IgM 41 kDa Band Nonreactive Lyme IgM W Blot Interp Negative 09/11/16 09/11/16 09/11/16 07:15 07:37 11:30 WBC 3.8 L RBC 3.51 Hgb 9.4 L Hct 28.1 L MCV 80.1 MCH 26.8 MCHC 33.5 RDW 13.0 Plt Count 191 MPV 9.7 Gran % 46.5 L Lymph % (Auto) 43.3 H [place] % (Auto) 7.8 H Eos % (Auto) 2.1 Baso % (Auto) 0.3 Gran # 1.78 Lymph # 1.7 [place] # 0.3 Eos # 0.1 Baso # 0.01 Sodium 138 Potassium 3.8 Chloride 106 Carbon Dioxide 23 Anion Gap 13 BUN 3 L Creatinine 0.6 Est GFR ( Amer) > 60 Est GFR (Non-Af Amer) > 60 POC Glucose (mg/dL) 68 104 Random Glucose 70 Calcium 8.2 L Total Bilirubin 0.4 AST 28 ALT 42 Alkaline Phosphatase 44 Total Protein 6.2 Albumin 3.2 Globulin 3.0 Albumin/Globulin Ratio 1.1 Aldolase Lyme Disease Screen Lyme IgG 18 kDa Band Lyme IgG 23 kDa Band Lyme IgG 28 kDa Band Lyme IgG 30 kDa Band Lyme IgG 39 kDa Band Lyme IgG 41 kDa Band Lyme IgG 45 kDa Band Lyme IgG 58 kDa Band Lyme IgG 66 kDa Band Lyme IgG 93 kDa Band Lyme IgG W Blot Interp Lyme IgM 23 kDa Band Lyme IgM 39 kDa Band Lyme IgM 41 kDa Band Lyme IgM W Blot Interp 09/11/16 16:12 WBC RBC Hgb Hct MCV MCH MCHC RDW Plt Count MPV Gran % Lymph % (Auto) [place] % (Auto) Eos % (Auto) Baso % (Auto) Gran # Lymph # [place] # Eos # Baso # Sodium Potassium Chloride Carbon Dioxide Anion Gap BUN Creatinine Est GFR ( Amer) Est GFR (Non-Af Amer) POC Glucose (mg/dL) 125 H Random Glucose Calcium Total Bilirubin AST ALT Alkaline Phosphatase Total Protein Albumin Globulin Albumin/Globulin Ratio Aldolase Lyme Disease Screen Lyme IgG 18 kDa Band Lyme IgG 23 kDa Band Lyme IgG 28 kDa Band Lyme IgG 30 kDa Band Lyme IgG 39 kDa Band Lyme IgG 41 kDa Band Lyme IgG 45 kDa Band Lyme IgG 58 kDa Band Lyme IgG 66 kDa Band Lyme IgG 93 kDa Band Lyme IgG W Blot Interp Lyme IgM 23 kDa Band Lyme IgM 39 kDa Band Lyme IgM 41 kDa Band Lyme IgM W Blot Interp Attending/Attestation - Attestation I have personally seen and examined this patient.: Yes I have fully participated in the care of the patient.: Yes I have reviewed all pertinent clinical information: Yes Notes (Text): 09/11/16 17:49 Pt seen with GI fellow on rounds. This is a 40 yo female with PMHx of anxiety/ panic attacks, HTN who presented to the ED following syncopal episode at work. Our service has been consulted for new onset abdominal pain in the past 24 hours which patient states has resolved. CTAP reviewed - unremarkable. Advance to regular diet. Will give stool softeners/ laxatives for constipation prn. -Recommend outpatient follow up with patient's PCP and referral for GI as needed -Will sign off. Thank you for allowing us to participate in the care of your patient.
[2016-09-11 14:55] LABS: 18 KD (IGG) BAND Nonreactive (()); 23 KD (IGG) BAND Nonreactive (()); 23 KD (IGM) BAND Reactive (()); 28 KD (IGG) BAND Nonreactive (()); 30 KD (IGG) BAND Nonreactive (()); 39 KD (IGG) BAND Nonreactive (()); 39 KD (IGM) BAND Nonreactive (()); 41 KD (IGG) BAND Nonreactive (()); 41 KD (IGM) BAND Nonreactive (()); 45 KD (IGG) BAND Nonreactive (()); 58 KD (IGG) BAND Nonreactive (()); 66 KD (IGG) BAND Reactive (()); 93 KD (IGG) BAND Nonreactive (()); LYME DISEASE INTERP (IGG) Negative (Negative)
[2016-09-11] MEDS: Hydrocortisone 2.5% Rectal Cream(30 gm) PR SCH (18:21)
[2016-09-11 19:57] VITALS: TEMP 98.5
[2016-09-12] MEDS: Pantoprazole 40 mg EC Tab PO SCH (06:14)
[2016-09-12] MEDS: Hydrocortisone 2.5% Rectal Cream(30 gm) PR SCH (09:01)
[2016-09-12 09:04] VITALS: BP 137/81; PULSE 52
--- NOTE | 2016-09-12 13:11 | CP.PCM.DIS ---
Provider - Provider Date of Admission: 09/07/16 14:06 Attending physician: Kristin Solis MD Primary care physician: Akua Espitia MD Time Spent in preparation of Discharge (in minutes): 35 Diagnosis - Discharge Diagnosis (1) Dizziness Status: Acute (2) Syncope Status: Acute Hospital Course - Lab Results Lab Results: Micro Results 09/08/16 20:45 Blood Blood Culture - Preliminary NO GROWTH AFTER 3 DAYS 09/08/16 20:30 Blood Blood Culture - Preliminary NO GROWTH AFTER 3 DAYS 09/11/16 13:50 Stool C. difficile Antigen & Toxin A,B (M - Final 09/08/16 00:30 Urine,Clean Catch Urine Culture - Final Coagulase Neg Staphylococcus Most Recent Lab Values WBC 3.8 10^3/ul (4.5-11.0) L 09/11/16 07:15 RBC 3.51 10^6/uL (3.5-6.1) 09/11/16 07:15 Hgb 9.4 gm/dL (12.0-16.0) L 09/11/16 07:15 Hct 28.1 % (36.0-48.0) L 09/11/16 07:15 MCV 80.1 fL (80.0-105.0) 09/11/16 07:15 MCH 26.8 pg (25.0-35.0) 09/11/16 07:15 MCHC 33.5 g/dl (31.0-37.0) 09/11/16 07:15 RDW 13.0 % (11.5-14.5) 09/11/16 07:15 Plt Count 191 10^3/uL (120.0-450.0) 09/11/16 07:15 MPV 9.7 fl (7.0-11.0) 09/11/16 07:15 Gran % 46.5 % (50.0-68.0) L 09/11/16 07:15 Lymph % (Auto) 43.3 % (22.0-35.0) H 09/11/16 07:15 [place] % (Auto) 7.8 % (1.0-6.0) H 09/11/16 07:15 Eos % (Auto) 2.1 % (1.5-5.0) 09/11/16 07:15 Baso % (Auto) 0.3 % (0.0-3.0) 09/11/16 07:15 Gran # 1.78 (1.4-6.5) 09/11/16 07:15 Lymph # 1.7 (1.2-3.4) 09/11/16 07:15 [place] # 0.3 (0.1-0.6) 09/11/16 07:15 Eos # 0.1 (0.0-0.7) 09/11/16 07:15 Baso # 0.01 K/mm3 (0.0-2.0) 09/11/16 07:15 PT 10.9 Seconds (9.9-11.8) 09/06/16 20:10 INR 1.01 (0.93-1.08) 09/06/16 20:10 APTT 23.1 Seconds (23.7-30.8) L 09/06/16 20:10 pO2 42 mm/Hg (30-55) 09/07/16 00:15 VBG pH 7.35 (7.32-7.43) 09/07/16 00:15 VBG pCO2 46.0 (40-60) 09/07/16 00:15 VBG HCO3 25.4 mmol/l (21-28) 09/07/16 00:15 VBG Total CO2 26.8 mmol.L (22-28) 09/07/16 00:15 VBG O2 Sat (Calc) 83.3 % (40-65) H 09/07/16 00:15 VBG Base Excess -0.6 mmol/L (0.0-2.0) L 09/07/16 00:15 VBG Potassium 4.0 mmol/L (3.6-5.2) 09/07/16 00:15 Sodium 139.0 mmol/L (132-148) 09/07/16 00:15 Chloride 108.0 mmol/L (98-107) H 09/07/16 00:15 Glucose 109 mg/dl (65-105) H 09/07/16 00:15 Lactate 1.0 mmol/L (0.7-2.1) 09/07/16 00:15 FiO2 21.0 % 09/07/16 00:15 Sodium 138 mmol/L (132-148) 09/11/16 07:15 Potassium 3.8 mmol/L (3.6-5.0) 09/11/16 07:15 Chloride 106 mmol/L (98-107) 09/11/16 07:15 Carbon Dioxide 23 mmol/L (21-33) 09/11/16 07:15 Anion Gap 13 (10-20) 09/11/16 07:15 BUN 3 mg/dL (7-21) L 09/11/16 07:15 Creatinine 0.6 mg/dL (0.5-1.4) 09/11/16 07:15 Est GFR ( Amer) > 60 09/11/16 07:15 Est GFR (Non-Af Amer) > 60 09/11/16 07:15 POC Glucose (mg/dL) 135 mg/dL (65-110) H 09/12/16 11:26 Random Glucose 70 mg/dL (70-110) 09/11/16 07:15 Hemoglobin A1c 5.7 % (4.2-6.5) 09/06/16 20:10 Calcium 8.2 mg/dL (8.4-10.5) L 09/11/16 07:15 Phosphorus 3.3 mg/dL (2.5-4.5) 09/09/16 06:20 Magnesium 1.7 mg/dL (1.7-2.2) 09/09/16 06:20 Iron 73 ug/dL (45-180) 09/08/16 06:20 TIBC 267 ug/dL (265-497) 09/08/16 06:20 % Saturation 27 % (20-55) 09/08/16 06:20 Ferritin 35.2 ng/mL 09/07/16 07:00 Total Bilirubin 0.4 mg/dL (0.2-1.3) 09/11/16 07:15 AST 28 U/L (15-39) 09/11/16 07:15 ALT 42 U/L (7-56) 09/11/16 07:15 Alkaline Phosphatase 44 U/L (38-133) 09/11/16 07:15 Total Creatine Kinase 61 U/L (35-230) 09/10/16 13:38 Troponin I < 0.01 ng/mL 09/06/16 20:10 Total Protein 6.2 g/dL (5.8-8.3) 09/11/16 07:15 Albumin 3.2 g/dL (3.0-4.8) 09/11/16 07:15 Globulin 3.0 gm/dL 09/11/16 07:15 Albumin/Globulin Ratio 1.1 (1.1-1.8) 09/11/16 07:15 Triglycerides 51 mg/dL (35-160) 09/06/16 20:10 Cholesterol 172 mg/dL (130-200) 09/06/16 20:10 LDL Cholesterol Direct 101 mg/dL (0-129) 09/06/16 20:10 HDL Cholesterol 52 mg/dL (29-60) 09/06/16 20:10 Lipase 69 U/L (23-300) 09/06/16 20:10 Aldolase 3.9 U/L (<=8.1) 09/10/16 08:00 TSH 3rd Generation 1.86 mIU/mL (0.46-4.68) 09/09/16 06:20 Beta HCG, Quant < 2.39 mIU/mL (0-6.15) 09/06/16 20:10 Venous Blood Potassium 4.0 mmol/L (3.6-5.2) 09/07/16 00:15 Urine Color Yellow (YELLOW) 09/07/16 09:36 Urine Appearance Clear (CLEAR) 09/07/16 09:36 Urine pH 6.0 (4.7-8.0) 09/07/16 09:36 Ur Specific [place] 1.025 (1.005-1.035) 09/07/16 09:36 Urine Protein Negative mg/dL (<30 mg/dL) 09/07/16 09:36 Urine Glucose (UA) Negative mg/dL (NEGATIVE) 09/07/16 09:36 Urine Ketones >=80 mg/dL (NEGATIVE) 09/07/16 09:36 Urine Blood Large (NEGATIVE) H 09/07/16 09:36 Urine Nitrate Negative (NEGATIVE) 09/07/16 09:36 Urine Bilirubin Negative (NEGATIVE) 09/07/16 09:36 Urine Urobilinogen 1.0 E.U./dL (<1 E.U./dL) H 09/07/16 09:36 Ur Leukocyte Esterase [place]/uL (NEGATIVE) H 09/07/16 09:36 Urine RBC 10 - 15 /hpf (0-2) 09/07/16 09:36 Urine WBC 5 - 10 /hpf (0-6) 09/07/16 09:36 Ur Epithelial Cells 10 - 12 /hpf (0-5) 09/07/16 09:36 Urine Bacteria Rare (NEG) 09/07/16 09:36 Urine Opiates Screen Negative (NEGATIVE) 09/08/16 21:45 Urine Methadone Screen Negative (NEGATIVE) 09/08/16 21:45 Ur Barbiturates Screen Positive (NEGATIVE) H 09/08/16 21:45 Ur Phencyclidine Scrn Negative (NEGATIVE) 09/08/16 21:45 Ur Amphetamines Screen Negative (NEGATIVE) 09/08/16 21:45 U Benzodiazepines Scrn Negative (NEGATIVE) 09/08/16 21:45 U Oth Cocaine Metabols Negative (NEGATIVE) 09/08/16 21:45 U Cannabinoids Screen Negative (NEGATIVE) 09/08/16 21:45 Lyme Disease Screen 0.50 (0.00-0.90) 09/10/16 13:00 Lyme IgG 18 kDa Band Nonreactive (()) 09/10/16 08:00 Lyme IgG 23 kDa Band Nonreactive (()) 09/10/16 08:00 Lyme IgG 28 kDa Band Nonreactive (()) 09/10/16 08:00 Lyme IgG 30 kDa Band Nonreactive (()) 09/10/16 08:00 Lyme IgG 39 kDa Band Nonreactive (()) 09/10/16 08:00 Lyme IgG 41 kDa Band Nonreactive (()) 09/10/16 08:00 Lyme IgG 45 kDa Band Nonreactive (()) 09/10/16 08:00 Lyme IgG 58 kDa Band Nonreactive (()) 09/10/16 08:00 Lyme IgG 66 kDa Band Reactive (()) H 09/10/16 08:00 Lyme IgG 93 kDa Band Nonreactive (()) 09/10/16 08:00 Lyme IgG W Blot Interp Negative (Negative) 09/10/16 08:00 Lyme IgM 23 kDa Band Reactive (()) H 09/10/16 08:00 Lyme IgM 39 kDa Band Nonreactive (()) 09/10/16 08:00 Lyme IgM 41 kDa Band Nonreactive (()) 09/10/16 08:00 Lyme IgM W Blot Interp Negative (Negative) 09/10/16 08:00 HIV 1&2 Antibody Screen Negative (NEGATIVE) 09/09/16 06:20 Blood Type B POSITIVE 09/06/16 21:06 Antibody Screen Negative 09/06/16 21:06 BBK History Checked Patient has bt 09/06/16 21:06 - Date & Time of H&P Date of H&P: 09/12/16 Time of H&P: 07:40 Discharge Exam - Head Exam Head Exam: ATRAUMATIC, NORMOCEPHALIC - Eye Exam Eye Exam: EOMI, Normal appearance Pupil Exam: NORMAL ACCOMODATION - ENT Exam ENT Exam: Mucous Membranes Moist - Neck Exam Neck exam: Full Rom - Respiratory Exam Respiratory Exam: Clear to PA & Lateral, NORMAL BREATHING PATTERN, UNREMARKABLE - GI/Abdominal Exam GI & Abdominal Exam: Normal Bowel Sounds, Soft, Unremarkable. absent: Tenderness - Rectal Exam Rectal Exam: NORMAL INSPECTION - Extremities Exam Extremities exam: full ROM, normal inspection - Back Exam Back exam: NORMAL INSPECTION. absent: CVA tenderness (L), CVA tenderness (R), paraspinal tenderness - Neurological Exam Neurological exam: Alert, CN II-XII Intact, Normal Gait, Oriented x3 - Psychiatric Exam Psychiatric exam: Normal Affect, Normal Mood - Skin Skin Exam: Dry, Intact, Normal Color, Warm Discharge Plan - Follow Up Plan Condition: FAIR Disposition: HOME/ ROUTINE Instructions: Vertigo (DC), Syncope (GEN), Weakness (GEN) Additional Instructions: Patient medically stable for discharge. Please return to the hospital if your symptoms return or any concerning symptoms arise. 1. Follow up with PMD DR. espitia. 2. Follow up with Neurology as needed. Referrals: Akua Espitia MD [Primary Care Provider] -
== END 2016-09-12 13:09 | disposition home or self-care (01) | DRG 65 ==
LOC: ED 19:54 → ERH 21:58 → 3RSO 23:19 → OBSVTOIN 09-07 14:06
PROVIDERS: ADMIT Internal Medicine; ATTEND Internal Medicine
DX: H83.2X9 Labyrinthine dysfunction, unspecified ear (principal); I10 Essential (primary) hypertension; N39.0 Urinary tract infection, site not specified; E86.0 Dehydration; D50.9 Iron deficiency anemia, unspecified; F41.0 Panic disorder [episodic paroxysmal anxiety]; K59.00 Constipation, unspecified; Z82.3 Family history of stroke; Z88.6 Allergy status to analgesic agent; Z87.892 Personal history of anaphylaxis; R19.7 Diarrhea, unspecified; R50.9 Fever, unspecified; R51 Headache; E03.9 Hypothyroidism, unspecified; D25.9 Leiomyoma of uterus, unspecified; B95.7 Other staphylococcus as the cause of diseases classified elsewhere; R10.31 Right lower quadrant pain; R42 Dizziness and giddiness

== ENCOUNTER 2017-01-17 17:56 | Emergency (ER) | payer OTHER, MEDICAID ==
[2017-01-17 17:56] VITALS: BMI 24.7
[2017-01-17 18:25] VITALS: BP 115/72; PULSE 92; RESP 16; TEMP 98.1; O2SAT 100
[2017-01-17] MEDS ORDERED: TDAP Vaccine 0.5 mL Syr IM ONE (19:01)
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
== END 2017-01-17 19:20 | disposition home or self-care (01) ==
LOC: ED 17:56
DX: S40.812A Abrasion of left upper arm, initial encounter (principal); W50.4XXA Accidental scratch by another person, initial encounter; Y93.F9 Activity, other caregiving; Y92.89 Other specified places as the place of occurrence of the external cause; Y99.0 Civilian activity done for income or pay; Z23 Encounter for immunization

== ENCOUNTER 2017-07-26 20:20 | Emergency (ER) | payer MEDICAID, OTHER ==
[2017-07-26 20:20] VITALS: BMI 24.7
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
[2017-07-26 21:38] VITALS: TEMP 98.8; O2SAT 100
[2017-07-26] MEDS ORDERED: Sodium Chloride 0.9% 500 ML IV STA (21:50)
[2017-07-26] MEDS ORDERED: DiphenhydrAMINE 50 mg/ml Inj IVP STA (21:50)
[2017-07-26 22:44] LABS: BASO # 0.03 K/mm3 (0.0-2.0); BASO % 0.5 % (0.0-3.0); EOS # 0.1 (0.0-0.7); EOS % 1.9 % (1.5-5.0); GRAN # 3.24 (1.4-6.5); GRAN % 50.6 % (50.0-68.0); LYMPH # 2.5 (1.2-3.4); LYMPH % 38.9 % (22.0-35.0); MEAN CELL VOLUME 81.6 fl (80.0-105.0); MEAN CORPUSCULAR HEMOGLOBIN 26.6 pg (25.0-35.0); MEAN CORPUSCULAR HGB CONC 32.7 g/dl (31.0-37.0); MEAN PLATELET VOLUME 9.8 fl (7.0-11.0); MONO # 0.5 (0.1-0.6); MONO % 8.1 % (1.0-6.0); RBC 4.88 10^6/uL (3.5-6.1); RED CELL DISTRIBUTION WIDTH 13.2 % (11.5-14.5); WHITE BLOOD COUNT 6.4 10^3/ul (4.5-11.0)
[2017-07-26 22:46] LABS: ALB/GLOB RATIO 1.2 (1.1-1.8); ALT/SGPT 32 U/L (7-56); AST/SGOT 34 U/L (14-36); BLOOD UREA NITROGEN 11 mg/dL (7-21); CALCIUM 10.1 mg/dL (8.4-10.5); GFR AFRICAN-AMERICAN > 60; GFR NON-AFRICAN AMERICAN > 60
--- NOTE | 2017-07-26 23:18 | CT ---
EXAM: CT Head Without Intravenous Contrast CLINICAL HISTORY: 41 years old, female; Condition or disease; Headache TECHNIQUE: Axial computed tomography images of the head/brain without intravenous contrast. All CT scans at this facility use one or more dose reduction techniques, viz.: automated exposure control; ma/kV adjustment per patient size (including targeted exams where dose is matched to indication; i.e. head); or iterative reconstruction technique. Coronal and sagittal reformatted images were created and reviewed. COMPARISON: CT - HEAD W/O CONTRAST 2016-09-06 21:09 FINDINGS: Brain: No intracranial hemorrhage. No mass. No definite edema. Ventricles: No hydrocephalus. Bones/joints: No acute fracture. Soft tissues: Unremarkable. Sinuses: No acute sinusitis. Mastoid air cells: No mastoid effusion. Orbits: Unremarkable as visualized. IMPRESSION: 1. No definite acute intracranial abnormality.
[2017-07-27 00:30] LABS: URINE BILIRUBIN NEGATIVE (NEGATIVE); URINE BLOOD TRACE-INTACT (NEGATIVE); URINE GLUCOSE (UA) NEGATIVE (NEGATIVE); URINE LEUKOCYTE ESTERASE SMALL Leu/uL (NEGATIVE); URINE NITRATE NEGATIVE (NEGATIVE); URINE PROTEIN NEGATIVE mg/dL (<30 mg/dL); URINE UROBILINOGEN 0.2 E.U./dL (<1 E.U./dL)
[2017-07-27 01:10] LABS: URINE APPEARANCE SL CLOUDY (CLEAR); URINE COLOR YELLOW (YELLOW)
[2017-07-27 01:40] LABS: URINE BACTERIA MOD (NEG)
[2017-07-27 02:55] VITALS: BP 128/72; PULSE 82; RESP 18
--- NOTE | 2017-07-27 09:02 | RAD ---
PROCEDURE: Radiographs of the Lumbar Spine. HISTORY: low back pain COMPARISON: No prior. FINDINGS: BONES: Normal alignment. No listhesis. No fracture. DISC SPACES: Unremarkable. OTHER FINDINGS: None. IMPRESSION: Unremarkable radiographs of the lumbar spine.
== END 2017-07-27 02:22 | disposition home or self-care (01) ==
LOC: ED 20:20
DX: N39.0 Urinary tract infection, site not specified (principal); R51 Headache; M54.5 Low back pain; I10 Essential (primary) hypertension
CPT/HCPCS: 70450; 72110; 80053; 81001; 83735; 85025; 87086; 87804; 96374; 96375; 99283; J1200; J2765; J7040

== ENCOUNTER 2018-01-25 17:41 | Emergency (ER) | payer MEDICAID ==
[2018-01-25 17:42] VITALS: BMI 24.7
[2018-01-25 17:55] VITALS: O2SAT 100
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
[2018-01-25 19:02] LABS: BASO # 0.03 K/mm3 (0.0-2.0); BASO % 0.5 % (0.0-3.0); EOS # 0.1 (0.0-0.7); EOS % 0.9 % (1.5-5.0); GRAN # 3.79 (1.4-6.5); GRAN % 66.5 % (50.0-68.0); HEMOGLOBIN 12.1 g/dL (12.0-16.0); LYMPH # 1.4 (1.2-3.4); LYMPH % 23.9 % (22.0-35.0); MEAN CELL VOLUME 79.2 fl (80.0-105.0); MEAN CORPUSCULAR HGB CONC 32.8 g/dl (31.0-37.0); MEAN PLATELET VOLUME 9.9 fl (7.0-11.0); MONO # 0.5 (0.1-0.6); MONO % 8.2 % (1.0-6.0); RBC 4.66 10^6/uL (3.5-6.1); RED CELL DISTRIBUTION WIDTH 12.9 % (11.5-14.5); WHITE BLOOD COUNT 5.7 10^3/ul (4.5-11.0)
[2018-01-25 19:09] LABS: INR 1.08; PROTHROMBIN TIME 12.3 SECONDS (9.4-12.5)
[2018-01-25 19:15] LABS: ALB/GLOB RATIO 1.3 (1.1-1.8); ALBUMIN 4.6 g/dL (3.0-4.8); ALT/SGPT 32 U/L (7-56); AST/SGOT 26 U/L (14-36); BLOOD UREA NITROGEN 11 mg/dL (7-21); CALCIUM 9.8 mg/dL (8.4-10.5); GFR AFRICAN-AMERICAN > 60; GFR NON-AFRICAN AMERICAN > 60
[2018-01-25 19:24] LABS: TROPONIN I < 0.01 ng/mL
[2018-01-25 19:53] VITALS: PULSE 87; RESP 18
[2018-01-25 20:38] VITALS: BP 130/72; TEMP 98.6
--- NOTE | 2018-01-26 08:35 | RAD ---
Date of service: 01/25/2018 HISTORY: Hypertensive Crisis COMPARISON: No prior. FINDINGS: LUNGS: The lungs are well inflated and clear. PLEURA: No significant pleural effusion identified, no pneumothorax apparent. CARDIOVASCULAR: Normal. OSSEOUS STRUCTURES: No significant abnormalities. VISUALIZED UPPER ABDOMEN: Normal. OTHER FINDINGS: None. IMPRESSION: No active disease.
--- NOTE | 2018-01-26 09:20 | CT ---
Date of service: 01/25/2018 PROCEDURE: CT HEAD WITHOUT CONTRAST. HISTORY: Hypertensive Crisis COMPARISON: None available. TECHNIQUE: Axial computed tomography images were obtained through the head/brain without intravenous contrast. Radiation dose: Total exam DLP = 762 mGy-cm. This CT exam was performed using one or more of the following dose reduction techniques: Automated exposure control, adjustment of the mA and/or kV according to patient size, and/or use of iterative reconstruction technique. FINDINGS: HEMORRHAGE: No intracranial hemorrhage. BRAIN: No mass effect or edema. No atrophy or chronic microvascular ischemic changes. VENTRICLES: Unremarkable. No hydrocephalus. CALVARIUM: Unremarkable. PARANASAL SINUSES: Unremarkable as visualized. No significant inflammatory changes. MASTOID AIR CELLS: Unremarkable as visualized. No inflammatory changes. OTHER FINDINGS: The report concurs with the preliminary [facility] report IMPRESSION: No acute findings
== END 2018-01-25 20:05 | disposition home or self-care (01) ==
LOC: ED 17:41
DX: I10 Essential (primary) hypertension (principal)
CPT/HCPCS: 70450; 71045; 80053; 81025; 82550; 83615; 83735; 84100; 84484; 85025; 85610; 96374; 99285; J0360

== ENCOUNTER 2018-10-01 15:38 | Emergency (ER) | payer MEDICAID ==
[2018-10-01 15:40] VITALS: BMI 33.6
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
[2018-10-01 16:10] VITALS: RESP 18; O2SAT 100
--- NOTE | 2018-10-01 16:43 | RAD ---
Date of service: 10/01/2018 HISTORY: chest pain COMPARISON: None available. TECHNIQUE: 1 view obtained. FINDINGS: LUNGS: No acute air space disease. Diminished inspiratory volume noted. PLEURA: No significant pleural effusion identified, no pneumothorax apparent. CARDIOVASCULAR: No aortic atherosclerotic calcification present. Normal cardiac size. No pulmonary vascular congestion. OSSEOUS STRUCTURES: No significant abnormalities. VISUALIZED UPPER ABDOMEN: Normal. OTHER FINDINGS: None. IMPRESSION: No acute air space disease. Diminished inspiratory volume noted. No acute vascular disease appreciable. Exam likely stable in the interval.
[2018-10-01 16:48] VITALS: TEMP 97.3
[2018-10-01 16:48] LABS: BASO # 0.02 K/mm3 (0.0-2.0); BASO % 0.4 % (0.0-3.0); EOS # 0.1 (0.0-0.7); EOS % 1.2 % (1.5-5.0); HEMOGLOBIN 12.7 g/dL (12.0-16.0); LYMPH # 1.6 (1.2-3.4); LYMPH % 27.8 % (22.0-35.0); MEAN CELL VOLUME 81.1 fl (80.0-105.0); MEAN CORPUSCULAR HEMOGLOBIN 25.9 pg (25.0-35.0); MEAN CORPUSCULAR HGB CONC 31.9 g/dl (31.0-37.0); MEAN PLATELET VOLUME 9.6 fl (7.0-11.0); MONO # 0.3 (0.1-0.6); MONO % 5.1 % (1.0-6.0); RBC 4.91 10^6/uL (3.5-6.1); RED CELL DISTRIBUTION WIDTH 13.4 % (11.5-14.5); WHITE BLOOD COUNT 5.7 10^3/uL (4.5-11.0)
--- NOTE | 2018-10-01 16:54 | CT ---
Date of service: 10/01/2018 PROCEDURE: CT HEAD WITHOUT CONTRAST. HISTORY: severe headache, htn COMPARISON: Noncontrast head CT 01/25/2018. TECHNIQUE: Axial computed tomography images were obtained through the head/brain without intravenous contrast. Radiation dose: Total exam DLP = 831.11 mGy-cm. This CT exam was performed using one or more of the following dose reduction techniques: Automated exposure control, adjustment of the mA and/or kV according to patient size, and/or use of iterative reconstruction technique. FINDINGS: HEMORRHAGE: No intracranial hemorrhage. BRAIN: Normal cancino-white matter differentiation and density are appreciated throughout the cerebrum and cerebellum with the brainstem appearing unremarkable as well. There is no mass effect. There is no suspicious extra-axial fluid collection and the midline brain anatomy appears diffusely unremarkable. No significant interval change appreciated. VENTRICLES: Unremarkable. No hydrocephalus. CALVARIUM: Unremarkable. PARANASAL SINUSES: Unremarkable as visualized. No significant inflammatory changes. MASTOID AIR CELLS: Unremarkable as visualized. No inflammatory changes. OTHER FINDINGS: None. IMPRESSION: Stable unremarkable unenhanced head CT. No significant interval change compared prior CT 01/25/2018.
[2018-10-01 17:02] LABS: ALB/GLOB RATIO 1.2 (1.1-1.8); ALBUMIN 4.2 g/dL (3.0-4.8); ALT/SGPT 13 U/L (7-56); AST/SGOT 21 U/L (14-36); BLOOD UREA NITROGEN 8 mg/dL (7-21); CALCIUM 9.7 mg/dL (8.4-10.5); GFR NON-AFRICAN AMERICAN > 60
[2018-10-01] MEDS ORDERED: DiphenhydrAMINE 50 mg/ml Inj IVP STA (17:06)
[2018-10-01 17:13] LABS: B-TYPE NATRIURETIC PEPTIDE 44.7 pg/mL (0-450); TROPONIN I < 0.01 ng/mL
--- NOTE | 2018-10-01 17:38 | CARD ---
APPROVED REPORT Date of service: 10/01/2018 EKG Measurement Heart [id number] <Conclusion> Normal sinus rhythm Voltage criteria for left ventricular hypertrophy Abnormal ECG
[2018-10-01 18:30] VITALS: BP 145/85; PULSE 72
== END 2018-10-01 18:48 | disposition home or self-care (01) ==
LOC: ED 15:38
DX: I10 Essential (primary) hypertension (principal); I51.7 Cardiomegaly; R51 Headache; F41.9 Anxiety disorder, unspecified
CPT/HCPCS: 70450; 71045; 80053; 81025; 82550; 82948; 83615; 83880; 84484; 85025; 93005; 96374; 96375; 99285; J1200; J2765

== ENCOUNTER 2018-10-03 17:07 | Emergency (ER) | payer MEDICAID ==
[2018-10-03 17:07] VITALS: BMI 33.6
[2018-10-03 17:33] VITALS: RESP 18; TEMP 98.1
[2018-10-03] MEDS ORDERED: Sodium Chloride 0.9% 1,000 ML IV STA (17:33)
[2018-10-03] MEDS ORDERED: DiphenhydrAMINE 50 mg/ml Inj IVP STA (17:33)
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
[2018-10-03 20:20] VITALS: BP 147/86; PULSE 88; O2SAT 98
== END 2018-10-03 20:19 | disposition home or self-care (01) ==
LOC: ED 17:07
DX: R51 Headache (principal); I10 Essential (primary) hypertension
CPT/HCPCS: 81025; 96374; 96375; 99285; J1100; J1200; J1885; J2765; J7030